=== PATIENT | female | born 1945 | race Caucasian/White ===

== ENCOUNTER 2016-09-29 12:45 | Inpatient (IN) | payer MEDICARE, OTHER ==
[~2016-09-29] VITALS: Ht 157.5 cm; Wt 61.0 kg
[~2016-09-29 12:45] MED LIST: AMLO10TA2 PO; BENZ2TAB5 PO; CARB1TAB2 PO; CIPR500T94 PO; CYCL-331 PO; DULO60CA6 PO; FOLI1TAB16 PO; HYDR25TA9 PO; IBUP200T43 PO; LAMO100T PO; LAMO100T37 PO; LEVO40CA PO; LEVO50TA5 PO; LITH300C PO; LORA0.5T PO; LOSA1TAB17 PO; LOSA25TA4 PO; MELO7.5T5 PO; OLAN5TAB9 PO; ONDA4TAB10 PO; POLY17PO5 PO; ROPI0.5T PO; SIMV40TA3 PO; TRIH2TAB3 PO
--- NOTE | 2016-09-29 13:02 | ED.ADGEN ---
Past History Past Medical History: Anxiety, COPD, Depression, Fibromyalgia, GERD, High Cholesterol, Hypertension, Other Past Surgical History: Appendectomy, Cholecystectomy, Hysterectomy, Other Smoking: Non-smoker Alcohol Use: None Drug Use: None Adult General Chief Complaint Chief Complaint weakness, nausea HPI HPI Patient is a 71 year old F who presents with nausea, weakness, multiple body complaints and stopping some medications at home on own. Pt states she hasn't had a BM in 2 months Pt c/o Nausea and vomiting and unable to keep significant food and water down for weeks. Pt states slight burning with urination. Pt states since she was released from Hospital not doing well. Pt lives alone and has helper come in. Per son pt had hospitalization in April and has had some struggles with his mothers care at her home since release and pt had Dementia. Pt c/o abdominal pain , decreased urination, generalized weakness, no Chest pain , no dyspnea Review of Systems Review of Systems Constitutional: Denies fever but states she has had chills Eyes: Denies change in visual acuity, redness, or eye pain HENT: Denies nasal congestion or sore throat Respiratory: Denies cough or shortness of breath Cardiovascular: No additional information not addressed in HPI GI: abdominal pain, N/V, constipation, no melena : Denies or hematuria [] Musculoskeletal: Denies back pain or joint pain [] Integument: Denies rash or skin lesions Neurologic: Denies headache, focal weakness or sensory changes ] Current Medications Current Medications Current Medications Medications (Trade) Dose Ordered Sig/Antionette Start Time Stop Time Status Last Admin Dose Admin Ceftriaxone Sodium 1 gm/ Sodium Chloride 50 ml @ 100 mls/hr 1X ONCE 09/29/16 16:45 09/29/16 17:14 DC 09/29/16 16:45 100 MLS/HR Ceftriaxone Sodium (Rocephin) 1 gm STK-MED ONCE 09/29/16 16:54 09/29/16 16:55 DC Iohexol (Omnipaque 300 Mg/ml) 75 ml 1X ONCE 09/29/16 14:30 09/29/16 14:31 DC 09/29/16 14:52 75 ML Ondansetron HCl (Zofran) 4 mg 1X ONCE 09/29/16 14:15 09/29/16 14:16 DC 09/29/16 14:07 4 MG Potassium Chloride (Klor-Con) 40 meq 1X ONCE 09/29/16 16:45 09/29/16 16:46 DC 09/29/16 16:45 40 MEQ Sodium Chloride 50 ml @ As Directed STK-MED ONCE 09/29/16 16:54 09/29/16 16:55 DC Allergies Allergies Allergies Coded Allergies Type Severity Reaction Last Updated Verified gluten Allergy Intermediate 05/05/16 Yes lactase Allergy Intermediate 05/05/16 Yes aspirin Allergy Mild rash 04/05/14 Yes latex Allergy Mild rash 04/05/14 Yes metoclopramide Allergy Mild rash 04/05/14 Yes oxycodone Allergy Mild hives 04/05/14 Yes sulfamethoxazole Allergy Mild hives 04/05/14 Yes trimethoprim Allergy Mild hives 04/05/14 Yes Physical Exam Physical Exam Constitutional: Well developed, well nourished, no acute distress, non-toxic appearance. [] HENT: Normocephalic, atraumatic, bilateral external ears normal, oropharynx moist, no oral exudates, nose normal. [] Eyes: PERRLA, EOMI, conjunctiva normal, no discharge. [] Neck: Normal range of motion, no tenderness, supple, no stridor. [] Cardiovascular:Heart rate regular rhythm, no murmur [] Lungs & Thorax: Bilateral breath sounds clear to auscultation [] Abdomen: Bowel sounds normal, soft, no tenderness, no masses, no pulsatile masses. [] Skin: Warm, dry, no erythema, no rash. [] Back: No tenderness, no CVA tenderness. [] Extremities: No tenderness, no cyanosis, no clubbing, ROM intact, no edema. [] Neurologic: Alert and oriented X 3, normal motor function, normal sensory function, no focal deficits noted. [] Psychologic: Affect normal, judgement normal, mood normal. [] Current Patient Data Vital Signs Vital Signs Date Time Temp Pulse Resp B/P (MAP) Pulse Ox O2 Delivery O2 Flow Rate FiO2 09/29/16 16:16 77 21 120/80 (93) 96 09/29/16 12:45 97.8 Room Air Lab Results Laboratory Tests Test 09/29/16 13:54 09/29/16 14:00 Urine Collection Type Unknown Urine Color Yellow Urine Clarity Hazy Urine pH 6.5 Urine Specific Robinson 1.015 Urine Protein 30 mg/dl (NEG-TRACE) Urine Glucose (UA) Neg mg/dL (NEG) Urine Ketones (Stick) 15 mg/dL (NEG) Urine Blood Neg (NEG) Urine Nitrite Neg (NEG) Urine Bilirubin Neg (NEG) Urine Urobilinogen Dipstick 1 mg/dL (0.2 mg/dL) Urine Leukocyte Esterase Mod (NEG) Urine RBC 1-2 /HPF (0-2) Urine WBC 11-20 /HPF (0-4) Urine Squamous Epithelial Cells Few /LPF Urine Bacteria 0 /HPF (0-FEW) Urine Mucus Mod /LPF White Blood Count 12.4 x10^3/uL (4.0-11.0) H Red Blood Count 5.31 x10^6/uL (3.50-5.40) Hemoglobin 15.6 g/dL (12.0-15.5) H Hematocrit 45.4 % (36.0-47.0) Mean Corpuscular Volume 86 fL (79-100) Mean Corpuscular Hemoglobin 29 pg (25-35) Mean Corpuscular Hemoglobin Concent 34 g/dL (31-37) Red Cell Distribution Width 14.7 % (11.5-14.5) H Platelet Count 440 x10^3/uL (140-400) H Neutrophils (%) (Auto) 78 % (31-73) H Lymphocytes (%) (Auto) 15 % (24-48) L Monocytes (%) (Auto) 6 % (0-9) Eosinophils (%) (Auto) 1 % (0-3) Basophils (%) (Auto) 1 % (0-3) Neutrophils # (Auto) 9.6 x10^3uL (1.8-7.7) H Lymphocytes # (Auto) 1.9 x10^3/uL (1.0-4.8) Monocytes # (Auto) 0.8 x10^3/uL (0.0-1.1) Eosinophils # (Auto) 0.1 x10^3/uL (0.0-0.7) Basophils # (Auto) 0.1 x10^3/uL (0.0-0.2) Sodium Level 138 mmol/L (136-145) Potassium Level 3.0 mmol/L (3.5-5.1) L Chloride Level 100 mmol/L (98-107) Carbon Dioxide Level 24 mmol/L (21-32) Anion Gap 14 (6-14) Blood Urea Nitrogen 16 mg/dL (7-20) Creatinine 1.2 mg/dL (0.6-1.0) H Estimated GFR (Cockcroft-Gault) 44.4 BUN/Creatinine Ratio 13 (6-20) Glucose Level 127 mg/dL (70-99) H Calcium Level 9.5 mg/dL (8.5-10.1) Total Bilirubin 0.9 mg/dL (0.2-1.0) Aspartate Amino Transferase (AST) 16 U/L (15-37) Alanine Aminotransferase (ALT) 13 U/L (14-59) L Alkaline Phosphatase 89 U/L (46-116) Creatine Kinase 26 U/L (26-192) Creatine Kinase MB (Mass) < 0.5 ng/mL (0.0-3.6) Creatine Kinase MB Relative Index 1.9 % (0-4) Troponin I Quantitative < 0.017 ng/mL (0-0.055) WX-Moo-F-Type Natriuretic Peptide 33 pg/mL (0-124) Total Protein 8.5 g/dL (6.4-8.2) H Albumin 4.5 g/dL (3.4-5.0) Albumin/Globulin Ratio 1.1 (1.0-1.7) Lipase 158 U/L (73-393) EKG EKG ekg 1404 Sinus rhythm with non specific ST T wave abnormality, no STEMI, no acute ischemic changes[] Radiology/Procedures Radiology/Procedures PATIENT: ROSALES TREADWELL ACCOUNT: [id number] : 1945 LOCATION: ER AGE: 71 SEX: F EXAM STATUS: REG ER ORD. PHYSICIAN: DANO RUTH MD REASON: abdominal pain PROCEDURE: CT ABD PELV W/ IV CONTRST ONLY Indication: Abdominal pain and weight loss. Axial imaging through the abdomen and pelvis was performed after the administration of intravenous contrast. No prior studies are available for comparison. The lung bases are clear. The liver is unremarkable. There is generalized low density consistent with fatty infiltration. The gallbladder is surgically absent. The intrahepatic bile ducts are slightly prominent, likely owing to postcholecystectomy. The pancreas and spleen are unremarkable. No adrenal mass is identified. The kidneys are unremarkable. Aorta is nonaneurysmal. No central retroperitoneal or mesenteric lymphadenopathy is seen. The small and large bowel loops are normal caliber. There is no ascites. There is sigmoid diverticulosis but no evidence of acute diverticulitis. The bladder is unremarkable. No pelvic lymphadenopathy is seen. Impression: Fatty infiltration of the liver and uncomplicated diverticulosis. The study is otherwise unremarkable. No acute feature is detected. DICTATED AND SIGNED BY: JOSE DALTON MD DATE: 09/29/16 1502 CC: DANO RUTH MD; PCP,N ATIENT: TREADWELLCARLOS ACCOUNT: [id number] : 1945 LOCATION: ER AGE: 71 SEX: F EXAM STATUS: REG ER ORD. PHYSICIAN: DANO RUTH MD REASON: dyspnea PROCEDURE: CHEST AP ONLY Indication: Dyspnea and abdominal pain. Time of exam 1409 hours. Correlation is made with prior chest from 05/02/2016. FINDINGS: The heart size is normal. The lungs are clear. No pleural effusion or pneumothorax is identified. The pulmonary vascularity is normal. IMPRESSION: No acute abnormality detected. DICTATED AND SIGNED BY: JOSE DALTON MD DATE: 09/29/16 1418 CC: DANO RUTH MD; PCP,NO ~ [] Course & Med Decision Making Course & Med Decision Making Pertinent Labs and Imaging studies reviewed. (See chart for details) []Pt with UTI , dehydration, generalized weakness and questionable medication compliance at home Pt low K+ given oral in ER given IV rocephin in ER Discussed with son and with current issues with pt on own at home and stopping meds on own may need placement will admit for treatment and social consult Final Impression Final Impression Weakness UTI Hypokalemia [] Problems: Dragon Disclaimer Dragon Disclaimer This electronic medical record was generated, in whole or in part, using a voice recognition dictation system. DANO RUTH MD September 29, 2016 13:02
[2016-09-29] MEDS ORDERED: ONDANSETRON PF 4 MG/2 ML VIAL. IV ONE (14:15)
[2016-09-29 14:19] LABS: BACTERIA,URINE 0 /HPF (0-FEW); BILIRUBIN,URINE NEG (NEG); CLARITY,URINE HAZY; COLOR,URINE YELLOW; GLUCOSE,URINE NEG (NEG); NITRITE,URINE NEG (NEG); UROBILINOGEN,URINE 1 mg/dL (0.2 mg/dL)
[2016-09-29 14:20] LABS: SQUAMOUS EPITHELIAL CELL,UR FEW /LPF
--- NOTE | 2016-09-29 14:21 | RAD ---
Indication: Dyspnea and abdominal pain. Time of exam 1409 hours. Correlation is made with prior chest from 05/02/2016. FINDINGS: The heart size is normal. The lungs are clear. No pleural effusion or pneumothorax is identified. The pulmonary vascularity is normal. IMPRESSION: No acute abnormality detected.
[2016-09-29 14:24] LABS: BASO # 0.1 x10^3/uL (0.0-0.2); BASO % 1 % (0-3); EOS # 0.1 x10^3/uL (0.0-0.7); EOS % 1 % (0-3); HEMATOCRIT 45.4 % (36.0-47.0); HEMOGLOBIN 15.6 g/dL (12.0-15.5); LYMPH # 1.9 x10^3/uL (1.0-4.8); LYMPH % 15 % (24-48); MEAN CORPUSCULAR HEMOGLOBIN 29 pg (25-35); MEAN CORPUSCULAR HGB CONC 34 g/dL (31-37); MEAN CORPUSCULAR VOLUME 86 fL (79-100); MONO # 0.8 x10^3/uL (0.0-1.1); MONO % 6 % (0-9); NEUT # 9.6 x10^3uL (1.8-7.7); NEUT % 78 % (31-73); PLATELET COUNT 440 x10^3/uL (140-400); RED BLOOD COUNT 5.31 x10^6/uL (3.50-5.40); RED CELL DISTRIBUTION WIDTH 14.7 % (11.5-14.5); WHITE BLOOD COUNT 12.4 x10^3/uL (4.0-11.0)
--- NOTE | 2016-09-29 14:25 | EKG ---
[address] [address] Test Date: 2016-09-29 Test Time: 14:04:55 Pat Name: ROSALES TREADWELL Department: Room: Gender: F [employer]er: BRANDO : 1945 Requested By: DANO RUTH Order Number: [id number] Reading MD: Eric Rodriguez Measurements Intervals [place] Rate: 80 P: 55 NC: 162 QRS: 46 QRSD: 88 T: 12 QT: 372 QTc: 433 Interpretive Statements SINUS RHYTHM NON-SPECIFIC ST/T CHANGES Electronically Signed On 10-06-2016 8:58:13 CDT by Eric Rodriguez
[2016-09-29] MEDS ORDERED: IOHEXOL 300 MG/ML 75 ML VIAL. IV ONE (14:30)
[2016-09-29 14:31] LABS: ALBUMIN 4.5 g/dL (3.4-5.0); ALBUMIN/GLOBULIN RATIO 1.1 (1.0-1.7); CALCIUM 9.5 mg/dL (8.5-10.1); CREATININE 1.2 mg/dL (0.6-1.0); GFR 44.4; TOTAL BILIRUBIN 0.9 mg/dL (0.2-1.0); TOTAL PROTEIN 8.5 g/dL (6.4-8.2)
[2016-09-29 14:40] LABS: CREATINE KINASE 26 U/L (26-192)
--- NOTE | 2016-09-29 15:07 | RAD ---
Indication: Abdominal pain and weight loss. Axial imaging through the abdomen and pelvis was performed after the administration of intravenous contrast. No prior studies are available for comparison. The lung bases are clear. The liver is unremarkable. There is generalized low density consistent with fatty infiltration. The gallbladder is surgically absent. The intrahepatic bile ducts are slightly prominent, likely owing to postcholecystectomy. The pancreas and spleen are unremarkable. No adrenal mass is identified. The kidneys are unremarkable. Aorta is nonaneurysmal. No central retroperitoneal or mesenteric lymphadenopathy is seen. The small and large bowel loops are normal caliber. There is no ascites. There is sigmoid diverticulosis but no evidence of acute diverticulitis. The bladder is unremarkable. No pelvic lymphadenopathy is seen. Impression: Fatty infiltration of the liver and uncomplicated diverticulosis. The study is otherwise unremarkable. No acute feature is detected.
[2016-09-29] MEDS ORDERED: POTASSIUM CHLORIDE 20 MEQ TABLET.ER. PO ONE (16:45)
[2016-09-29] MEDS ORDERED: IV NORMAL SALINE 50ML 50 ML ONE (16:54)
[2016-09-29] MEDS ORDERED: cefTRIAXone SODIUM 1 GM VIAL IV ONE (16:54)
[2016-09-29] MEDS ORDERED: DONE10TA7 PO (19:17)
[2016-09-29] MEDS: ONDANSETRON PF 4 MG/2 ML VIAL. IV PRN (19:18)
[2016-09-29] MEDS ORDERED: LAMO100T PO (19:18)
[2016-09-29] MEDS: POTASSIUM CL 20MEQ D5-0.45NACL 1,000 ML IV SCH (19:18)
[2016-09-29] MEDS ORDERED: SIMV10TA3 PO (19:19)
[2016-09-29] MEDS ORDERED: ROPI0.5T PO (19:21)
[2016-09-29] MEDS ORDERED: ROPI1TAB PO (19:22)
[2016-09-29] MEDS ORDERED: [UNRECOGNIZED DRUG - OTHER] PO (19:24)
[2016-09-29] MEDS ORDERED: BISA5TAB4 PO (19:24)
[2016-09-29] MEDS ORDERED: MULT-658 PO (19:24)
[2016-09-29 19:41] VITALS: BP 124/82
[2016-09-29 23:46] VITALS: BP 116/76
[2016-09-30] MEDS: POTASSIUM CL 20MEQ D5-0.45NACL 1,000 ML IV SCH ×2 (03:44→15:41)
[2016-09-30 05:40] VITALS: BP 110/72
[2016-09-30 06:17] LABS: BASO # 0.1 x10^3/uL (0.0-0.2); BASO % 1 % (0-3); EOS # 0.1 x10^3/uL (0.0-0.7); EOS % 1 % (0-3); HEMATOCRIT 40.8 % (36.0-47.0); HEMOGLOBIN 13.9 g/dL (12.0-15.5); LYMPH # 2.6 x10^3/uL (1.0-4.8); LYMPH % 31 % (24-48); MEAN CORPUSCULAR HEMOGLOBIN 29 pg (25-35); MEAN CORPUSCULAR HGB CONC 34 g/dL (31-37); MEAN CORPUSCULAR VOLUME 87 fL (79-100); MONO # 0.7 x10^3/uL (0.0-1.1); MONO % 8 % (0-9); NEUT # 5.1 x10^3uL (1.8-7.7); NEUT % 59 % (31-73); PLATELET COUNT 322 x10^3/uL (140-400); RED BLOOD COUNT 4.71 x10^6/uL (3.50-5.40); RED CELL DISTRIBUTION WIDTH 14.5 % (11.5-14.5); WHITE BLOOD COUNT 8.6 x10^3/uL (4.0-11.0)
[2016-09-30 06:47] LABS: ALBUMIN 3.5 g/dL (3.4-5.0); CALCIUM 8.6 mg/dL (8.5-10.1); GFR 54.8; POTASSIUM 3.8 mmol/L (3.5-5.1); TOTAL BILIRUBIN 0.7 mg/dL (0.2-1.0)
[2016-09-30 10:11] VITALS: BP 126/78
--- NOTE | 2016-09-30 12:17 | HP ---
ADMIT DATE: 09/29/2016 HISTORY OF PRESENT ILLNESS: The patient is a 71-year-old female patient who came to the Emergency Room complaining of recurrent bouts of nausea, vomiting. She claimed that she has not had any bowel movement for almost a month now, has been unable to keep anything by mouth and yesterday, she became very dizzy and lightheaded, very weak and decided to come to the Emergency Room where she was evaluated and admitted with dehydration and hypokalemia. She has had a CT scan of the abdomen and pelvis, which showed no acute abnormality detected and was started on IV fluid as well as antiemetics. PAST MEDICAL HISTORY: Significant for hypertension, hyperlipidemia, bronchial asthma, celiac disease, fibromyalgia, Parkinson's disease. PAST SURGICAL HISTORY: Significant for appendectomy, cholecystectomy, partial hysterectomy, L4-L5 laminectomy x 3. She had right shoulder arthroscopic surgery and she had a bowel obstruction and underwent exploratory laparotomy x 2, one of them was for adhesions. She also has had esophagogastroduodenoscopy as well as colonoscopy. ALLERGIES: She is allergic to PENICILLIN, LATEX, METOCLOPRAMIDE, OXYCODONE, SULFAMETHOXAZOLE AND TRIMETHOPRIM. MEDICATIONS: She is currently on following medications: Amlodipine 10 mg once a day, probiotic 1 tablet once a day, bisacodyl 5 mg tablet every other day, carbidopa/levodopa for Sinemet 25/100 mg four times a day, Aricept 10 mg once a day, duloxetine 60 mg once a day, folic acid 1 mg once a day, lamotrigine 50 mg at bedtime, multivitamin with mineral 1 tablet once a day, ReQuip 0.5 mg 3 times a day, ReQuip 1 mg 3 times a day, simvastatin 10 mg at bedtime. FAMILY HISTORY: She has 2 brothers, one older and healthy and one younger has spina bifida. Her father at age of 97 due to intracranial hemorrhage. Mother at age of 90 because of cardiac arrest. SOCIAL HISTORY: She is and . She has 1 son and 1 daughter. She has never smoked, does not drink alcohol, works in accounting. REVIEW OF SYSTEMS: The patient denied any blurring of vision, cataract, glaucoma or macular degeneration. Denied any earache, tinnitus or sensorineural deafness. Denied any nosebleeds, stuffy nose or postnasal drip. Denied any sore throat, sore tongue, toothache, hoarseness of voice or difficulty swallowing. Did complain of nausea, vomiting, has had constipation for almost a month according to her. Denied any hematemesis, melena or hematochezia. Denied any dysuria, frequency or hematuria. Denied any chest pain, shortness of breath, orthopnea or paroxysmal nocturnal dyspnea. Did complain of dizziness and lightheadedness. PHYSICAL EXAMINATION: GENERAL: On arrival, she looked somewhat pale, but no jaundice or cyanosis. No lymphadenopathy, no thyromegaly, no jugular venous distention, no limb edema. VITAL SIGNS: Her heart rate was 95, blood pressure was 107/65, temperature was 97.8, respiratory rate was 18 and oxygen saturation was 98% on room air. HEENT: Normocephalic, atraumatic. NECK: Supple. HEART: Showed normal first and second heart sounds with no gallop, rub or murmur. CHEST: Clear to auscultation. No crepitation or rhonchi. ABDOMEN: Distended, soft, nontender. NEUROLOGIC: She is awake, alert, responding appropriately. Cranial nerves intact. EXTREMITIES: She moves her extremities without difficulty. LABORATORY DATA: On arrival showed a white cell count of 12,400, hemoglobin 15.6, hematocrit 45, MCV 86 and platelet count of 440,000 with a manual differential that showed 78% polymorphs, 15% lymphocytes. Her chemistry showed a serum sodium of 138, potassium 3, chloride 100, bicarbonate 24, anion gap of 14, BUN 16, creatinine 1.2, estimated GFR was 44 mL per minute. Her glucose was 127, calcium was 9.5. Total bilirubin, AST, ALT, alkaline phosphatase were normal. Her total protein was 8.5, albumin was 4.5. Serum lipase 158. ASSESSMENT AND PLAN: The patient was admitted with what seemed to be intractable nausea and vomiting. She was clearly dehydrated. Her BUN was 16, creatinine 1.2. Her H and H are high at 15.6 and 45. Her urinalysis showed moderate amount of leukocyte esterase with 11-20 wbc's and moderate very few bacteria. She was started on IV fluid, IV antibiotic and ceftriaxone and antiemetic. I will decide on further management according to her response. VIJAYA TORREZ MD DR: MAGY/kimber JOB#: [id number] / [id number]
[2016-09-30] MEDS: lamoTRIgine 25 MG TABLET. PO SCH ×2 (12:37→20:59)
[2016-09-30] MEDS: rOPINIRole 1 MG TABLET. PO SCH ×2 (12:37→20:59)
[2016-09-30] MEDS: amLODIPine BESYLATE 10 MG TABLET PO SCH (12:38)
[2016-09-30] MEDS: CARBIDOPA/LEVODOPA 25/100MG TABLET PO SCH ×3 (12:38→20:59)
[2016-09-30] MEDS: rOPINIRole 0.5 MG TABLET. PO SCH ×2 (12:38→20:59)
[2016-09-30] MEDS: DONEPEZIL HCL 10 MG TABLET PO SCH (12:38)
[2016-09-30] MEDS: DULoxetine HCL 60 MG CAPSULE.DR PO SCH ×3 (12:38→20:59)
[2016-09-30] MEDS: FOLIC ACID 1 MG TABLET PO SCH (12:38)
[2016-09-30] MEDS: BISACODYL TAB 5 MG TABLET.DR. PO SCH (12:38)
[2016-09-30] MEDS: SIMVASTATIN 10 MG TABLET PO SCH (12:38)
[2016-09-30 15:24] VITALS: BP 119/77
[2016-09-30] MEDS: ONDANSETRON PF 4 MG/2 ML VIAL. IV PRN (15:40)
[2016-09-30 18:26] VITALS: BP 134/83
--- NOTE | 2016-09-30 22:18 | PN ---
DATE: 09/30/2016 SUBJECTIVE: The patient is resting, slightly propped up in bed, in no apparent distress, awake, alert. On questioning her, denied any further episodes of nausea or vomiting. She has tolerated her clear liquid diet. She denied any abdominal pain. PHYSICAL EXAMINATION: GENERAL: When I examined her this morning, she looked well and was clearly in no apparent respiratory distress, pale, but no jaundice, cyanosis or thyromegaly. No jugular venous distention. No limb edema. VITAL SIGNS: Her heart rate was 65, blood pressure 126/78, temperature was 97.7, respiratory rate 20 and oxygen saturation was 97%. HEAD, EYES, EARS, NOSE AND THROAT: Normocephalic, atraumatic. NECK: Supple. HEART: Showed normal first and second heart sounds with no gallop, rub or murmur. CHEST: Clear to auscultation. No crepitation or rhonchi. ABDOMEN: Soft, nontender. No guarding or rigidity. No organomegaly. All hernial orifices intact. Bowel sounds normal. NEUROLOGIC: She is awake, alert but definitely demented. All her cranial nerves are intact. She moves extremities without difficulty. Her intake over the last 24 hours was 1200, output was 350. LABORATORY DATA: Her lab work this morning showed her serum sodium 141, potassium 3.8, chloride 106, bicarbonate 27, anion gap of 8, BUN 13, creatinine 1, estimated GFR was 55 mL per minute. Her glucose 113, calcium was 8.6. Total bilirubin, AST, ALT, alkaline phosphatase were normal. Her total protein 7, albumin was 3.5. Her white cell count was 8600, hemoglobin 13.9, hematocrit 40.8, MCV 87 and platelet count of 322,000. ASSESSMENT: 1. Intractable nausea and vomiting. 2. Dehydration. 3. Acute kidney injury. 4. Hypokalemia which has resolved. Other issues include hyperlipidemia, celiac disease, fibromyalgia and Parkinson's disease. VIJAYA TORREZ MD DR: MAGY/kimber JOB#: [id number] / [id number]
[2016-09-30 23:30] VITALS: BP 137/78
[2016-10-01] MEDS: POTASSIUM CL 20MEQ D5-0.45NACL 1,000 ML IV SCH ×3 (01:17→20:25)
[2016-10-01 04:59] VITALS: BP 120/76
[2016-10-01 06:30] LABS: BASO # 0.1 x10^3/uL (0.0-0.2); BASO % 1 % (0-3); EOS # 0.1 x10^3/uL (0.0-0.7); EOS % 1 % (0-3); HEMATOCRIT 40.6 % (36.0-47.0); HEMOGLOBIN 14.2 g/dL (12.0-15.5); LYMPH # 2.4 x10^3/uL (1.0-4.8); LYMPH % 26 % (24-48); MEAN CORPUSCULAR HEMOGLOBIN 30 pg (25-35); MEAN CORPUSCULAR HGB CONC 35 g/dL (31-37); MEAN CORPUSCULAR VOLUME 85 fL (79-100); MONO # 0.6 x10^3/uL (0.0-1.1); MONO % 7 % (0-9); NEUT % 65 % (31-73); PLATELET COUNT 337 x10^3/uL (140-400); RED BLOOD COUNT 4.76 x10^6/uL (3.50-5.40); WHITE BLOOD COUNT 9.2 x10^3/uL (4.0-11.0)
[2016-10-01 06:52] LABS: ALBUMIN 3.8 g/dL (3.4-5.0); CALCIUM 8.9 mg/dL (8.5-10.1); GFR 54.8; POTASSIUM 3.7 mmol/L (3.5-5.1); TOTAL BILIRUBIN 0.5 mg/dL (0.2-1.0); TOTAL PROTEIN 7.5 g/dL (6.4-8.2)
[2016-10-01] MEDS: rOPINIRole 0.5 MG TABLET. PO SCH ×3 (09:00→20:25)
[2016-10-01] MEDS: DONEPEZIL HCL 10 MG TABLET PO SCH (09:08)
[2016-10-01] MEDS: MULTIVITAMIN with MINERAL TABLET. PO SCH (09:08)
[2016-10-01] MEDS: amLODIPine BESYLATE 10 MG TABLET PO SCH (09:09)
[2016-10-01] MEDS: CARBIDOPA/LEVODOPA 25/100MG TABLET PO SCH ×4 (09:09→20:25)
[2016-10-01] MEDS: LACTOBACILLUS ACIDOPH & BULGAR 1 TABLET. PO SCH (09:09)
[2016-10-01] MEDS: rOPINIRole 1 MG TABLET. PO SCH ×3 (09:09→20:25)
[2016-10-01] MEDS: FOLIC ACID 1 MG TABLET PO SCH (09:09)
[2016-10-01] MEDS: SIMVASTATIN 10 MG TABLET PO SCH (09:09)
[2016-10-01] MEDS: ONDANSETRON PF 4 MG/2 ML VIAL. IV PRN ×2 (09:11→16:57)
[2016-10-01 11:28] VITALS: BP 113/73
[2016-10-01 16:12] VITALS: BP 127/77
[2016-10-01 19:10] VITALS: BP 132/86
[2016-10-01] MEDS: lamoTRIgine 25 MG TABLET. PO SCH (20:25)
[2016-10-01] MEDS: DULoxetine HCL 60 MG CAPSULE.DR PO SCH (20:25)
[2016-10-01 23:15] VITALS: BP 111/73
[2016-10-02] MEDS: POTASSIUM CL 20MEQ D5-0.45NACL 1,000 ML IV SCH (05:26)
[2016-10-02 05:32] VITALS: BP 129/78
[2016-10-02 06:20] LABS: CALCIUM 8.9 mg/dL (8.5-10.1); GFR 54.8; MAGNESIUM 1.8 mg/dL (1.8-2.4); POTASSIUM 3.8 mmol/L (3.5-5.1)
[2016-10-02] MEDS: FOLIC ACID 1 MG TABLET PO SCH (08:34)
[2016-10-02] MEDS: CARBIDOPA/LEVODOPA 25/100MG TABLET PO SCH ×4 (08:34→21:11)
[2016-10-02] MEDS: rOPINIRole 0.5 MG TABLET. PO SCH ×3 (08:34→21:11)
[2016-10-02] MEDS: rOPINIRole 1 MG TABLET. PO SCH ×3 (08:34→21:11)
[2016-10-02] MEDS: MULTIVITAMIN with MINERAL TABLET. PO SCH (08:34)
[2016-10-02] MEDS: LACTOBACILLUS ACIDOPH & BULGAR 1 TABLET. PO SCH (08:34)
[2016-10-02] MEDS: DONEPEZIL HCL 10 MG TABLET PO SCH (08:34)
[2016-10-02] MEDS: amLODIPine BESYLATE 10 MG TABLET PO SCH (08:35)
[2016-10-02] MEDS: BISACODYL TAB 5 MG TABLET.DR. PO SCH (08:35)
[2016-10-02] MEDS: ONDANSETRON PF 4 MG/2 ML VIAL. IV PRN ×3 (08:35→21:12)
[2016-10-02] MEDS: SIMVASTATIN 10 MG TABLET PO SCH (08:35)
--- NOTE | 2016-10-02 09:40 | PN ---
DATE: 10/01/2016 SUBJECTIVE: The patient is sitting comfortably in her recliner in no apparent distress. She continues to be tolerating a liquid diet without any problems. She has had no further episodes of nausea, vomiting. She is well hydrated. Her electrolytes, particularly sodium and potassium are well within normal range. PHYSICAL EXAMINATION: GENERAL: When I examined her, she looked well and was clearly in no apparent respiratory distress, pale, but no jaundice, cyanosis or thyromegaly. No jugular venous distention. No limb edema. VITAL SIGNS: Her heart rate was 71, blood pressure 113/73, temperature was 97.9, respiratory rate 20 and oxygen saturation was 97%. HEAD, EYES, EARS, NOSE AND THROAT: Normocephalic, atraumatic. NECK: Supple. HEART: Showed normal first and second heart sounds with no gallop, rub or murmur. CHEST: Clear to auscultation. No crepitation or rhonchi. ABDOMEN: Distended, soft, nontender. No guarding or rigidity. No organomegaly. All hernial orifices intact. Bowel sounds normal. NEUROLOGIC: She was awake, alert, responding appropriately. Cranial nerves are intact. She moves extremities without difficulty. She ambulates without assistance or assistive devices. Her intake over the last 24 hours was 1200, output 350. LABORATORY DATA: As of this morning, her serum sodium was 143, potassium 3.7, chloride 106, bicarbonate 27, anion gap of 10, BUN 6, creatinine 1, estimated GFR was 55 mL per minute. Her glucose was 110. Calcium was 8.9. Total bilirubin, AST, ALT, alkaline phosphatase were normal. Her total protein was 7.5, albumin 3.8. White cell count was 9200, hemoglobin 14, hematocrit 40, MCV 85 and platelet count of 337,000. ASSESSMENT: 1. Intractable nausea and vomiting, resolved. 2. Dehydration, resolved. 3. Acute kidney injury, resolved. 4. Hypokalemia has resolved. Her serum potassium has risen from 3 to 3.7. 5. Hyperlipidemia. 6. Celiac disease. 7. Fibromyalgia. 8. Parkinson disease. PLAN: To advance her diet as tolerated. SHE HAS AN ALLERGY TO GLUTEN AND LACTOSE. VIJAYA TORREZ MD DR: MAGY/kimber JOB#: [id number] / [id number]
[2016-10-02 14:59] VITALS: BP 121/75
--- NOTE | 2016-10-02 19:10 | PN ---
DATE: 10/02/2016 SUBJECTIVE: The patient is resting slightly propped up in bed, in no apparent respiratory distress. She is awake, alert, responding appropriately. She apparently is eating and drinking. Her urine culture showed only normal segun. PHYSICAL EXAMINATION: GENERAL: When I examined her, she looked pale, but no jaundice, cyanosis, or thyromegaly. No jugular venous distention. No limb edema. VITAL SIGNS: Her heart rate was 72, blood pressure 129/78, temperature was 98.3, respiratory rate was 20 and oxygen saturation was 98% on room air. HEAD, EYES, EARS, NOSE AND THROAT: Showed normocephalic, atraumatic. NECK: Supple. HEART: Showed normal first and second heart sounds with no gallop, rub or murmur. CHEST: Clear to auscultation. No crepitation or rhonchi. ABDOMEN: Distended, soft, nontender. No guarding or rigidity. No organomegaly. All hernial orifices intact. Bowel sounds normal. NEUROLOGIC: She is demented, but without any obvious lateralizing signs. All cranial nerves are intact. She moves extremities without difficulty. Her intake over the last 24 hours was 4400, output was 4350. LABORATORY DATA: Her lab work as of this morning showed a serum sodium 143, potassium 3.8, chloride 104, bicarbonate 29, anion gap of 10, BUN 5, creatinine 1, estimated GFR was 55 mL per minute. Her glucose was 109, calcium was 8.9 and magnesium was 1.8. Her white cell count was 9200, hemoglobin 14, hematocrit 40, MCV 85 and platelet count of 337,000. ASSESSMENT: 1. Intractable nausea and vomiting, resolved. 2. Dehydration, resolved. 3. Acute kidney injury, resolved. 4. Hypokalemia, has improved. Her most recent serum potassium has risen to 3.8. 5. Hyperlipidemia. 6. Celiac disease. 7. Fibromyalgia. 8. Parkinson's disease. PLAN: To discontinue the IV antibiotic as her urine culture showed only 25 to 50,000 colony forming units ____ segun. I will also discontinue the IV fluid and start physical and occupational therapy. VIJAYA TORREZ MD DR: MAGY/kimber JOB#: [id number] / [id number]
[2016-10-02 19:26] VITALS: BP 128/78
[2016-10-02] MEDS: lamoTRIgine 25 MG TABLET. PO SCH (21:11)
[2016-10-02] MEDS: DULoxetine HCL 60 MG CAPSULE.DR PO SCH (21:11)
[2016-10-03 05:05] VITALS: BP 122/76
[2016-10-03] MEDS: FOLIC ACID 1 MG TABLET PO SCH (08:28)
[2016-10-03] MEDS: amLODIPine BESYLATE 10 MG TABLET PO SCH (08:28)
[2016-10-03] MEDS: SIMVASTATIN 10 MG TABLET PO SCH (08:28)
[2016-10-03] MEDS: LACTOBACILLUS ACIDOPH & BULGAR 1 TABLET. PO SCH (08:28)
[2016-10-03] MEDS: MULTIVITAMIN with MINERAL TABLET. PO SCH (08:28)
[2016-10-03] MEDS: rOPINIRole 0.5 MG TABLET. PO SCH (08:28)
[2016-10-03] MEDS: rOPINIRole 1 MG TABLET. PO SCH (08:28)
[2016-10-03] MEDS: DONEPEZIL HCL 10 MG TABLET PO SCH (08:29)
[2016-10-03] MEDS: CARBIDOPA/LEVODOPA 25/100MG TABLET PO SCH (08:29)
[2016-10-03 09:40] VITALS: BP 125/70
== END 2016-10-03 10:15 | DRG 392 ==
LOC: ER 12:45 → 1 SOUTH 17:05 → OBSVTOIN 09-30 13:08
PROVIDERS: ADMIT Internal Medicine; ATTEND Internal Medicine
DX: R11.2 Nausea with vomiting, unspecified (principal); N17.9 Acute kidney failure, unspecified; E87.6 Hypokalemia; E78.00 Pure hypercholesterolemia, unspecified; E78.5 Hyperlipidemia, unspecified; F03.90 Unspecified dementia, unspecified severity, without behavioral disturbance, psychotic disturbance, mood disturbance, and anxiety; G20 Parkinson's disease; I10 Essential (primary) hypertension; K21.9 Gastro-esophageal reflux disease without esophagitis; K57.30 Diverticulosis of large intestine without perforation or abscess without bleeding; J45.909 Unspecified asthma, uncomplicated; J44.9 Chronic obstructive pulmonary disease, unspecified; E86.0 Dehydration; K76.0 Fatty (change of) liver, not elsewhere classified; K90.0 Celiac disease; M79.7 Fibromyalgia; F32.9 Major depressive disorder, single episode, unspecified; F41.9 Anxiety disorder, unspecified; R63.4 Abnormal weight loss; Z82.41 Family history of sudden cardiac death; Z90.49 Acquired absence of other specified parts of digestive tract; Z68.24 Body mass index [BMI] 24.0-24.9, adult; Z88.5 Allergy status to narcotic agent; Z88.2 Allergy status to sulfonamides; Z88.6 Allergy status to analgesic agent; Z91.011 Allergy to milk products; Z90.710 Acquired absence of both cervix and uterus
CPT/HCPCS: 36415; 71010; 74177; 80048; 80053; 81001; 82553; 83690; 83735; 83880; 84484; 85027; 87086; 93005; G0378; G0379; J0696; J2405; Q9967; 97110; 97530; 97535

== ENCOUNTER 2016-11-21 16:35 | Inpatient (IN) | payer MEDICARE ==
[~2016-11-21] VITALS: Ht 157.5 cm; Wt 56.8 kg
[~2016-11-21 16:35] MED LIST changes: +BISA5TAB4 PO; +DONE10TA7 PO; +MULT-658 PO; +ROPI1TAB PO; +SIMV10TA3 PO; +[UNRECOGNIZED DRUG - OTHER] PO
[2016-11-21] MEDS ORDERED: MORPHINE SULFATE 4 MG/ML DISP.SYRIN. IV/SQ PRN (18:00)
[2016-11-21] MEDS ORDERED: ONDANSETRON PF 4 MG/2 ML VIAL. IV ONE (18:10)
[2016-11-21] MEDS ORDERED: IV NORMAL SALINE 1,000ML 1,000 ML IV SCH (18:10)
--- NOTE | 2016-11-21 18:15 | PHYS DOC ---
General Chief Complaint: ABDOMINAL PAIN Stated Complaint: ABD PAIN Time Seen by MD: 16:53 Source: patient Exam Limitations: no limitations Problems: (JOSE WINSTON DO) Time Seen by MD: 18:31 Problems: (BENNY QUEZADA MD) History of Present Illness Initial Comments Pt is 71/F to ED c/o abdominal pain. Pt states that since 10/06 she has had worsening abdominal pain and distention. She points across her lower abdomen a band like pattern pain across her low abdomen. She has history of irritable bowel syndrome and multiple bowel obstructions among other chronic conditions. She says she's had decreasing size of bowel movements for the past 6 weeks as well, she seen no blood in her stool and denies dark tarry stools, she has had bloating of her abdomen for 1 month. She has not seen a GI specialist for some time and states her last scope was 6 years ago. She denies history of colon cancer, she does relate that April last year she weight 180 pounds and states today she is 125 pounds there is weight loss unintentionally. She's only had one episode of emesis on October 11 otherwise just nausea. Today she says she experienced sudden onset of severe left-sided abdominal pain described as sharp and crampy 10 out of 10 worse with movement and somewhat relieved with rest. Symptoms are consistent with early symptoms of prior bowel obstructions. Denies fever chills sweats or myalgias no chest pain or trouble breathing no headache or focal weakness. Timing/Duration: getting worse, other Severity: severe Modifying Factors: worse with eating, worse with movement, improves with rest Associated Symptoms: loss of appetite, malaise, nausea/vomiting, weakness, other (JOSE WINSTON DO) Allergies: Coded Allergies: gluten (Verified Allergy, Intermediate, 05/05/16) lactase (Verified Allergy, Intermediate, 05/05/16) aspirin (Verified Allergy, Mild, rash, 04/05/14) latex (Verified Allergy, Mild, rash, 04/05/14) metoclopramide (Verified Allergy, Mild, rash, 04/05/14) oxycodone (Verified Allergy, Mild, hives, 04/05/14) sulfamethoxazole (Verified Allergy, Mild, hives, 04/05/14) trimethoprim (Verified Allergy, Mild, hives, 04/05/14) Past Medical History Medical History: other (anxiety, COPD, depression, fibromyalgia, GERD, hyperlipidemia, hypertension, dementia, small bowel obstruction, constipation predominant irritable bowel syndrome, Parkinson's disease, fatty liver, diverticulosis, urinary tract infection) Surgical History: other (appendectomy, cholecystectomy, hysterectomy, bladder suspension, rectocele 2, 3 lumbar procedures) (JOSE WINSTON DO) Social History Smoker: non-smoker Alcohol: none Drugs: none (JOSE WINSTON DO) Review of Systems Constitutional: denies chills, denies diaphoresis, denies fever, malaise, weakness Respiratory: denies cough, denies shortness of breath, denies wheezing Cardiovascular: denies chest pain, denies palpitations, denies syncope Gastrointestinal: see HPI Genitourinary: denies dysuria, denies frequency, denies hematuria Musculoskeletal: denies gout, denies joint swelling, denies neck pain Psychiatric/Neurological: denies headache, denies numbness, denies paresthesia , denies weakness (JOSE WINSTON DO) Physical Exam General Appearance: no apparent distress, thin Eyes: bilateral eye normal inspection, bilateral eye PERRL, bilateral eye EOMI Ear, Nose, Throat: hearing grossly normal, normal ENT inspection, normal pharynx (dry mucous membranes), other (whitish exudate of the tongue no erythema or bleeding) Neck: non-tender, supple Respiratory: normal breath sounds, no respiratory distress Cardiovascular: normal peripheral pulses, regular rate, rhythm Gastrointestinal: soft (distended, generalized tenderness with exquisite tenderness at the left abdomen with rebound tenderness no palpable masses) Back: no CVA tenderness, no vertebral tenderness Extremities: non-tender, normal inspection Neurologic/Psychiatric: family support specialist II-XII nml as tested, no motor/sensory deficits, alert, normal mood/affect, oriented x 3 Skin: pallor (poor turgor) (JOSE WINSTON DO) Orders, Labs, Meds 1843: Orders entered, studies are pending. Patient signed out to Dr. Quezada at 1800 shift change see his documentation for results and disposition. (JOSE WINSTON DO) Orders, Labs, Meds ER Joe attending note Dr. Benny Quezada assumed by me at 1800. Initial care provided by Dr. Marrero and at the time of assumption of care labs and CT pending Patient well-appearing with diffuse abdominal pain but no guarding or rebound on my exam. Normal bowel sounds. No mass or megaly. Labs with elevated white blood cell count 13.8. CT consistent with diverticulitis but no perforation or abscess. Vital signs stable. She still has nausea and persistent pain and does not feel like she could manage as an outpatient. Case discussed with Dr. Estevez' s most on-call. Dr. Estevez is aware of history and findings and agrees with inpatient admission to her service. patient stable for admission. (BENNY QUEZADA MD) JOSE WINSTON DO Nov 21, 2016 18:15 BENNY QEUZADA MD Nov 22, 2016 04:15
[2016-11-21 18:39] LABS: BASO # 0.1 x10^3/uL (0.0-0.2); BASO % 1 % (0-3); EOS # 0.1 x10^3/uL (0.0-0.7); EOS % 1 % (0-3); HEMATOCRIT 43.1 % (36.0-47.0); HEMOGLOBIN 14.9 g/dL (12.0-15.5); LYMPH # 1.5 x10^3/uL (1.0-4.8); LYMPH % 11 % (24-48); MEAN CORPUSCULAR HEMOGLOBIN 31 pg (25-35); MEAN CORPUSCULAR HGB CONC 35 g/dL (31-37); MEAN CORPUSCULAR VOLUME 88 fL (79-100); MONO # 0.7 x10^3/uL (0.0-1.1); MONO % 5 % (0-9); NEUT # 11.4 x10^3uL (1.8-7.7); NEUT % 83 % (31-73); PLATELET COUNT 498 x10^3/uL (140-400); RED CELL DISTRIBUTION WIDTH 14.6 % (11.5-14.5); WHITE BLOOD COUNT 13.8 x10^3/uL (4.0-11.0)
[2016-11-21 18:44] LABS: HEMOGLOBIN ISTAT 15.3 gm/dL; POTASSIUM ISTAT 3.3 mmol/L (3.5-5.0)
[2016-11-21 18:52] LABS: ALBUMIN 4.2 g/dL (3.4-5.0); CALCIUM 9.1 mg/dL (8.5-10.1); CREATININE 1.1 mg/dL (0.6-1.0); GFR 49.1; POTASSIUM 3.3 mmol/L (3.5-5.1); TOTAL BILIRUBIN 0.5 mg/dL (0.2-1.0); TOTAL PROTEIN 8.4 g/dL (6.4-8.2)
--- NOTE | 2016-11-21 19:05 | RAD ---
History: Abdominal pain and distention. Constipation and nausea. Comparison: None. Technique: CT of the abdomen and pelvis was performed without intravenous or oral contrast. Exposure: One or more of the following individualized dose reduction techniques were utilized for this examination: 1. Automated exposure control 2. Adjustment of the mA and/or kV according to patient size 3. Use of iterative reconstruction technique Findings: Evaluation of solid organs of the abdomen and pelvis is limited by lack of intravenous contrast. Evaluation of enteric structures may be limited by lack of oral contrast. Liver, spleen, pancreas, and bilateral adrenal glands are unremarkable. Cholecystectomy clips are present. Bilateral kidneys and ureters are free of stone or obstruction. There is no evidence of small bowel obstruction. Urinary bladder is unremarkable. Uterus is absent. Colonic diverticulosis is noted, especially in the sigmoid colon. There is fat stranding and wall thickening involving the sigmoid colon, compatible with acute diverticulitis. No perforation or abscess is seen. There is a moderate amount of stool present in the colon proximal to the sigmoid diverticulitis. Levoconvex degenerative scoliosis of the spine is seen. Impression: 1. CT evidence of acute diverticulitis involving the sigmoid colon. No perforation or abscess is seen at this time. 2. When acute issues have resolved, if not performed recently, colonoscopy could be performed to exclude presence of mass. 3. Moderate colonic stool. Electronically signed by: Benny Madrigal MD (11/21/2016 7:02 PM)
[2016-11-21] MEDS ORDERED: KETOROLAC 30 MG/ML VIAL. IV ONE (19:10)
[2016-11-21 21:00] LABS: AMORPHOUS SEDIMENT,UR PRESENT /HPF; BACTERIA,URINE 0 /HPF (0-FEW); BILIRUBIN,URINE NEG (NEG); CLARITY,URINE CLEAR; COLOR,URINE STRAW; GLUCOSE,URINE NEG (NEG); NITRITE,URINE NEG (NEG); RBC,URINE 0 /HPF (0-2); SQUAMOUS EPITHELIAL CELL,UR OCC /LPF; UROBILINOGEN,URINE 0.2 mg/dL (0.2 mg/dL); WBC,URINE OCC /HPF (0-4)
[2016-11-21] MEDS ORDERED: IV NORMAL SALINE 1,000ML 1,000 ML IV ONE (22:10)
[2016-11-21] MEDS ORDERED: CIPROFLOXACIN 400MG PREMIX 200 ML IV ONE (22:10)
--- NOTE | 2016-11-21 22:58 | ACF ---
Admission Criteria Forms DIVERTICULITIS, ACUTE Clinical Indications for Admission to Inpatient Care (Place 'X' for any and all applicable criteria): Admission is indicated for ANY ONE of the following (1)(2)(3)(4): [ ]I. Peritoneal signs on physical examination (eg, acute abdominal pain, abdominal tenderness and guarding) [ ]II. Hemodynamic instability [ ]III. Persistent gross bleeding per rectum [ ]IV. Need for inpatient surgical intervention [ ]V. Significant abnormality on imaging study including ANY ONE of the following: [ ]a) Abscess [ ]b) Obstruction [ ]c) Fistula [ ]d) Ileus [ ]e) Free perforation [ ]. Immunocompromised patient (steroid use, chemotherapy, uremia, AIDS , transplant patient ) with acute symptoms [X]VII Inpatient admission required rather than observation care (also use Diverticulitis, Acute: Observation Care as appropriate) because of ANY ONE of the following: [ ]a) High fever or infection. requiring inpatient admission as indicated by ANY ONE of the following(5): [ ]1) Appropriate outpatient or observation care antimicrobial treatment unavailable, not effective, not feasible [ ]2) Temperature > 103.1 degrees F (39.5 degrees C) (oral) or < 96.8 degrees F (36 degrees C)(rectal) that does not respond to all emergency treatment measures [ ]3) Temperature> 104.9 degrees F (40.5 degrees C)( oral) [ ]4) Documented bacteremia [X]b) Severe pain requiring acute inpatient management [ ]c) Severe electrolyte abnormalities requiring inpatient care [ ]d) Ongoing transfusion for blood loss (> 2 units) [ ]e) IV fluid to replace significant ongoing losses (> 3 L/m2 per day) [ ]f) Parenteral nutrition regimen that must be implemented on inpatient basis [X]g) Other condition, treatment or monitoring requiring inpatient admission Extended stay beyond goal length of stay may be needed for (2) (15) : [ ]a) Unresolved symptoms (19) [ ]b) Complications [ ]c) Diverticular hemorrhage(2) The original [facility] [employer] content created by [facility] [employer] has been revised. The portions of the content which have been revised are identified through the use of italic text or in bold, and [facility] has neither reviewed nor approved the modified material. All other unmodified content is copyright [facility]. Please see references footnoted in the original [facility] edition 2016 Admission Criteria Met?: Yes LAITH HESS. Nov 21, 2016 22:58
[2016-11-22 00:41] VITALS: BP 118/71
[2016-11-22] MEDS: MORPHINE SULFATE 2 MG/ML DISP.SYRIN. IV PRN ×3 (00:57→12:38)
[2016-11-22] MEDS: IV NORMAL SALINE 1,000ML 1,000 ML IV SCH ×4 (00:57→18:15)
[2016-11-22] MEDS ORDERED: CYCL1DRO OU (01:01)
[2016-11-22] MEDS ORDERED: POTA20TA4 PO (01:01)
[2016-11-22] MEDS ORDERED: BUSP5TAB PO (01:01)
[2016-11-22] MEDS ORDERED: AMLO10TA4 PO (01:01)
[2016-11-22] MEDS ORDERED: MELA1TAB2 PO (01:01)
[2016-11-22] MEDS ORDERED: ONDA4TAB7 PO (01:01)
[2016-11-22] MEDS ORDERED: SORB1SOL PO (01:01)
[2016-11-22] MEDS ORDERED: MOME45OI2 TP (01:01)
[2016-11-22] MEDS ORDERED: ACET325T21 PO (01:01)
[2016-11-22] MEDS ORDERED: VENL75CA PO (01:01)
[2016-11-22] MEDS ORDERED: TRAZ50TA15 PO (01:01)
[2016-11-22] MEDS ORDERED: SENN-6 PO (01:01)
[2016-11-22] MEDS ORDERED: POTASSIUM CHLORIDE 20 MEQ TABLET.ER. PO ONE (01:30)
--- NOTE | 2016-11-22 01:42 | NUR ---
The patient, ROSALES TREADWELL, 71 y/o, F admitted by KEENAN GALLEGOS DO, was given written information regarding hospital policies, unit procedures and contact persons. Pt experiencing frequent nausea and episodes of vomiting through out the day, unable to keep PO intake down. Pt admitted for acute diverticulitis. Vital signs assessed and stable. Reviewed plan of care with pt. Oriented pt to room and safety precautions. Valuables were checked and left in room with patient.
[2016-11-22 05:00] VITALS: BP 121/74
[2016-11-22 06:31] LABS: BASO % 0 % (0-3); EOS # 0.1 x10^3/uL (0.0-0.7); EOS % 1 % (0-3); HEMATOCRIT 36.6 % (36.0-47.0); HEMOGLOBIN 12.6 g/dL (12.0-15.5); LYMPH # 1.2 x10^3/uL (1.0-4.8); LYMPH % 20 % (24-48); MEAN CORPUSCULAR HEMOGLOBIN 31 pg (25-35); MEAN CORPUSCULAR HGB CONC 35 g/dL (31-37); MEAN CORPUSCULAR VOLUME 89 fL (79-100); MONO # 0.4 x10^3/uL (0.0-1.1); MONO % 7 % (0-9); NEUT # 4.3 x10^3uL (1.8-7.7); NEUT % 71 % (31-73); PLATELET COUNT 349 x10^3/uL (140-400); RED BLOOD COUNT 4.14 x10^6/uL (3.50-5.40); RED CELL DISTRIBUTION WIDTH 14.4 % (11.5-14.5)
[2016-11-22 06:47] LABS: GFR 54.8; MAGNESIUM 1.9 mg/dL (1.8-2.4)
[2016-11-22 07:38] LABS: ALBUMIN 3.1 g/dL (3.4-5.0); ALBUMIN/GLOBULIN RATIO 1.1 (1.0-1.7); CALCIUM 7.8 mg/dL (8.5-10.1); POTASSIUM 4.4 mmol/L (3.5-5.1); TOTAL BILIRUBIN 1.4 mg/dL (0.2-1.0)
[2016-11-22] MEDS: POTASSIUM CHLORIDE 40 MEQ in IV RINGERS SOLUTION,LACTATED 1,000 ML IV SCH ×2 (07:55→19:50)
[2016-11-22] MEDS: KETOROLAC 15 MG/ML VIAL. IV PRN ×3 (08:01→22:21)
[2016-11-22] MEDS ORDERED: CIPROFLOXACIN 400MG PREMIX 200 ML IV SCH (09:00)
[2016-11-22 10:46] VITALS: BP 134/77
--- NOTE | 2016-11-22 11:40 | NUR ---
NURSING NOTE: AM NS non-administered d/t new orders received for LR w/ Potassium.
[2016-11-22] MEDS: ONDANSETRON PF 4 MG/2 ML VIAL. IV PRN (13:20)
[2016-11-22] MEDS ORDERED: PIP/TAZO PER PHARMACY MC PRN (14:00)
--- NOTE | 2016-11-22 14:11 | PDOC1 ---
History and Physicial This is a history and physical on [facility] Admission 11/21/16 Reason for admission: History of present illness: This is a 71-year-old female through the emergency room with a complaint of ongoing abdominal pain which has gotten worse. Started around 550 T. She was actually admitted to the hospital in September 30 with recurrent bouts of nausea and vomiting. Ports that she does have seborrheic and gluten problems and has to be dairy free is well. She denies a fever but states that she's had chills and sweats denies bloody stools but states the character of her bowel movements have gotten larger. Past medical history: Ureteral bowel syndrome, hypertension, hyperlipidemia, asthma, celiac disease, fibromyalgia, Parkinson's disease, and admission to [facility] in September 2016 for constipation nausea and vomiting, mild cva, UTI , fall Past surgical history: Appendectomy, cholecystectomy, partial hysterectomy, bladder and rectocele repair, repair of bowel obstructions, scar tissue removal , 3 back surgeries on L4 and L5 Allergies: aspirin, gluten, lactase, latex, metoclopramide, oxycodone, sulfamethoxazole, trimethoprim Medications: Please see MRAD Social history: She recently moved into intermediate. She is and . She has 1 son and 1 daughter. Tobacco none, alcohol none, Family history: She has 2 brothers, 1 older and healthy and one younger has spina bifida. Father at age 97 due to intracranial hemorrhage. Mother at age 90 of a cardiac arrest. Review systems positive : for 50 pound weight loss since April 2016, , chills and sweats, short term memory lossrest neg Physical Exam: Frail appearing female in no acute distress HEENT: She is edentulous, throat was clear, tongue was moist, pupils were equal round react to light and accommodation, hearing is normal Pulmonary: Lungs were clear to auscultation Cardiovascular regular rhythm and rate without murmur The abdomen was soft bowel sounds are positive she is mildly diffusely tender throughout no masses were palpated. Extremities without edema Cognitively she appears intact complains of short-term memory loss Studies: CT of the abdomen and pelvis show evidence of diverticulitis. Gallbladder is absent. Liver spleen and pancreas appear normal. Laboratory LABS: White blood cell elevated at 12.8, initially liver function tests yesterday were normal as well as lipase and amylase. Morning blood work show unexpected rise in M AST, ALP alkaline phosphatase and bilirubin. Assessment #1 diverticulitis #2 transaminitis-this may be due to Cipro and Flagyl as it does not fit the picture of diverticulitis #3 SIRS #4 celiac disease #5 -50 pound weight loss question etiology #6 DVT prophylaxis Plan: Discontinue Cipro and Flagyl as this can cause transaminitis. Get a stat liver ultrasound. Repeat all labs. Start her on Zosyn. Monitor closely. Discussed with Dr. Dawson and Dr. Hurtado Problems: KEENAN GALLEGOS DO Nov 22, 2016 14:11
[2016-11-22 14:28] LABS: ALBUMIN 3.2 g/dL (3.4-5.0); ALBUMIN/GLOBULIN RATIO 0.9 (1.0-1.7); CALCIUM 8.3 mg/dL (8.5-10.1); GFR 54.8; POTASSIUM 4.3 mmol/L (3.5-5.1); TOTAL BILIRUBIN 1.6 mg/dL (0.2-1.0); TOTAL PROTEIN 6.8 g/dL (6.4-8.2)
[2016-11-22 15:08] VITALS: BP 120/76
[2016-11-22] MEDS ORDERED: PIPERACILLIN/TAZOBACTAM 3.375 GM in IV NORMAL SALINE 50ML 50 ML IV SCH (16:00)
[2016-11-22] MEDS: PIPERACILLIN/TAZOBACTAM 3.375 GM in IV NORMAL SALINE 50ML 50 ML IV SCH ×2 (16:11→22:21)
[2016-11-22] MEDS: ENOXAPARIN 30 MG/0.3 ML DISP.SYRIN. SQ SCH (16:12)
--- NOTE | 2016-11-22 16:50 | RAD ---
Exam: Hepatic venous Doppler HISTORY: Sudden increase in liver enzymes. DATE OF SERVICE: 11/22/2016 COMPARISON: CT abdomen and pelvis from 11/21/2016 Discussion: Real-time bustillos scale, color flow, duplex Doppler and spectral analysis of the splenoportal axis is performed and images are obtained. Normal hepatopedal flow is seen in the splenic and portal veins. Normal and hepatofugal flow seen in the hepatic veins. Tiny fluid collection in the right lower quadrant. IMPRESSION: Essentially unremarkable portal venous Doppler. Electronically signed by: Emily Mejía MD (11/22/2016 4:46 PM)
[2016-11-22 19:29] VITALS: BP 121/79
[2016-11-22] MEDS: traZODone 50 MG TABLET. PO SCH (22:45)
[2016-11-23] MEDS: PIPERACILLIN/TAZOBACTAM 3.375 GM in IV NORMAL SALINE 50ML 50 ML IV SCH ×4 (03:17→21:21)
[2016-11-23] MEDS: POTASSIUM CHLORIDE 40 MEQ in IV RINGERS SOLUTION,LACTATED 1,000 ML IV SCH ×2 (03:17→16:43)
[2016-11-23 06:07] VITALS: BP 115/65
[2016-11-23 07:08] LABS: ALBUMIN 2.9 g/dL (3.4-5.0); ALBUMIN/GLOBULIN RATIO 0.9 (1.0-1.7); CALCIUM 8.1 mg/dL (8.5-10.1); CREATININE 1.1 mg/dL (0.6-1.0); GFR 49.1; MAGNESIUM 1.9 mg/dL (1.8-2.4); POTASSIUM 4.6 mmol/L (3.5-5.1); TOTAL BILIRUBIN 1.2 mg/dL (0.2-1.0); TOTAL PROTEIN 6.2 g/dL (6.4-8.2)
[2016-11-23] MEDS ORDERED: ONDANSETRON ODT 4 MG TAB.RAPDIS PO PRN (08:00)
[2016-11-23] MEDS: CARBIDOPA/LEVODOPA 25/100MG TABLET PO SCH ×4 (08:23→20:22)
[2016-11-23] MEDS: busPIRone 5 MG TABLET. PO SCH ×3 (08:23→16:22)
[2016-11-23] MEDS: rOPINIRole 0.5 MG TABLET. PO SCH ×3 (08:23→20:22)
[2016-11-23] MEDS: SENNOSIDES/DOCUSATE 8.6/50MG TABLET. PO SCH ×2 (08:23→20:22)
[2016-11-23] MEDS: KETOROLAC 15 MG/ML VIAL. IV PRN ×3 (08:23→23:17)
[2016-11-23] MEDS: BISACODYL TAB 5 MG TABLET.DR. PO SCH (08:24)
[2016-11-23] MEDS: cycloSPORINE 0.05% OPTH 1 DROP DROPERETTE OU SCH ×2 (08:24→20:23)
[2016-11-23] MEDS: FOLIC ACID 1 MG TABLET PO SCH (08:24)
[2016-11-23] MEDS: rOPINIRole 1 MG TABLET. PO SCH ×3 (08:31→20:23)
[2016-11-23 12:17] VITALS: BP 113/64
[2016-11-23] MEDS: ENOXAPARIN 30 MG/0.3 ML DISP.SYRIN. SQ SCH (14:54)
--- NOTE | 2016-11-23 15:29 | PDOC ---
PROVIDER NOTE PROVIDER NOTE PROVIDER NOTE Progress note on Angella Nunes on 74. Problems: 1 acute diverticulitis #2 transaminitis #3 transient transient increase in lipase now normal #4 sepsis with diverticulitis #5 50 pound weight loss questionable etiology #6 DVT prophylaxis 71-year-old female minute with abdominal pain. Found to have diverticulitis. She developed transaminitis and elevated lipase with [place] due to the Cipro and metronidazole all. This was discontinued and she was placed on Zosyn. Values are trending down.. Still has abdominal pain Subjective temp 97.5 pulse 64 respirations 18 and saturation 99% on room air She is resting quietly in bed, her tongue was moist, her neck was supple, lungs clear, cardiovascular regular rhythm and rate without murmur, the abdomen was soft she has loud bowel sounds she is diffusely tender throughout there are no masses palpated. Extremities were without edema. Auditory liver function tests trending down. Likewise lipase has normalized. CBC white count was normal now Plan continue IV fluids. I have clear liquids. Continue IV N biotics. She may need a CT with contrast or an MRI if things don't continue to improve. She will have liver function Tests done again tomorrow. KEENAN GALLEGOS DO Nov 23, 2016 15:29
[2016-11-23] MEDS ORDERED: MAGNESIUM CITRATE 296 ML SOLUTION. PO ONE (16:00)
[2016-11-23 16:37] VITALS: BP 143/86
--- NOTE | 2016-11-23 16:51 | NUR ---
CONSULT: Routine consult called to Dr. Anna. No return call at this time.
[2016-11-23 19:11] VITALS: BP 130/74
[2016-11-23] MEDS ORDERED: MORPHINE SULFATE 2 MG/ML DISP.SYRIN. IV PRN (19:30)
[2016-11-23] MEDS: ONDANSETRON PF 4 MG/2 ML VIAL. IV PRN (19:39)
[2016-11-23] MEDS: DULoxetine HCL 60 MG CAPSULE.DR PO SCH (20:22)
[2016-11-23] MEDS: traZODone 50 MG TABLET. PO SCH (20:22)
[2016-11-23] MEDS: lamoTRIgine 100 MG TABLET. PO SCH (20:25)
[2016-11-23] MEDS: MELATONIN 3 MG TABLET PO SCH (20:25)
[2016-11-23] MEDS ORDERED: traZODone 50 MG TABLET. PO SCH (21:00)
[2016-11-23 22:19] VITALS: BP 152/84
[2016-11-24] MEDS: POTASSIUM CHLORIDE 40 MEQ in IV RINGERS SOLUTION,LACTATED 1,000 ML IV SCH ×3 (02:18→21:12)
[2016-11-24] MEDS: PIPERACILLIN/TAZOBACTAM 3.375 GM in IV NORMAL SALINE 50ML 50 ML IV SCH ×4 (03:45→22:10)
[2016-11-24 05:15] VITALS: BP 131/74
[2016-11-24] MEDS: KETOROLAC 15 MG/ML VIAL. IV PRN ×3 (06:09→22:13)
[2016-11-24 06:14] LABS: BASO # 0.1 x10^3/uL (0.0-0.2); BASO % 1 % (0-3); EOS # 0.2 x10^3/uL (0.0-0.7); EOS % 3 % (0-3); HEMATOCRIT 37.1 % (36.0-47.0); HEMOGLOBIN 12.7 g/dL (12.0-15.5); LYMPH % 23 % (24-48); MEAN CORPUSCULAR HEMOGLOBIN 30 pg (25-35); MEAN CORPUSCULAR HGB CONC 34 g/dL (31-37); MEAN CORPUSCULAR VOLUME 88 fL (79-100); MONO # 0.6 x10^3/uL (0.0-1.1); MONO % 7 % (0-9); NEUT # 5.8 x10^3uL (1.8-7.7); NEUT % 67 % (31-73); PLATELET COUNT 329 x10^3/uL (140-400); RED BLOOD COUNT 4.19 x10^6/uL (3.50-5.40); RED CELL DISTRIBUTION WIDTH 14.3 % (11.5-14.5); WHITE BLOOD COUNT 8.7 x10^3/uL (4.0-11.0)
[2016-11-24 06:26] LABS: ALBUMIN 2.9 g/dL (3.4-5.0); ALBUMIN/GLOBULIN RATIO 0.8 (1.0-1.7); CALCIUM 8.2 mg/dL (8.5-10.1); CREATININE 1.1 mg/dL (0.6-1.0); GFR 49.1; MAGNESIUM 2.3 mg/dL (1.8-2.4); POTASSIUM 4.1 mmol/L (3.5-5.1); TOTAL BILIRUBIN 0.7 mg/dL (0.2-1.0); TOTAL PROTEIN 6.4 g/dL (6.4-8.2)
[2016-11-24] MEDS: PANTOPRAZOLE IV PUSH 40 MG VIAL. IVP SCH (07:30)
[2016-11-24] MEDS: rOPINIRole 0.5 MG TABLET. PO SCH ×3 (08:07→20:24)
[2016-11-24] MEDS: FOLIC ACID 1 MG TABLET PO SCH (08:07)
[2016-11-24] MEDS: CARBIDOPA/LEVODOPA 25/100MG TABLET PO SCH ×4 (08:07→20:24)
[2016-11-24] MEDS: SENNOSIDES/DOCUSATE 8.6/50MG TABLET. PO SCH ×2 (08:07→20:24)
[2016-11-24] MEDS: rOPINIRole 1 MG TABLET. PO SCH ×3 (08:07→20:26)
[2016-11-24] MEDS: busPIRone 5 MG TABLET. PO SCH ×3 (08:07→16:35)
[2016-11-24] MEDS: cycloSPORINE 0.05% OPTH 1 DROP DROPERETTE OU SCH ×2 (08:08→20:23)
[2016-11-24] MEDS: ONDANSETRON PF 4 MG/2 ML VIAL. IV PRN (09:10)
[2016-11-24 10:59] VITALS: BP 121/64
[2016-11-24 13:09] LABS: HCV ANTIBODY <0.1 s/co ratio (0.0-0.9); HEP A IGM ABDY Negative (Negative)
--- NOTE | 2016-11-24 13:30 | NUR ---
CALLED CONSULT IN AGAIN TO DR BELTRAN'S OFFICE. HAD NOT HEARD FROM OR OFFICE
--- NOTE | 2016-11-24 14:27 | PDOC2 ---
CONSULT Date of Admission DATE: 11/24/16 TIME: 14:14 Reason for Consult: diverticulitis, constipation Referring Physician: Dr Estevez Chief Complaint abdominal pain Source: Chart review, Patient Problem List Problems Medical Problems: (1) Diverticulitis Status: Acute History of Present Illness Reports worsening of symptoms that have been occurring for six weeks. Last BM was 11/20 and was the size of her finger tip. She reports this has been ongoing since the end september. She has a significant history of constipation. Last colonoscopy was 5 years ago, polyp and diverticulosis. First episode of diverticulitis. The severe pain started Thursday diffusely across abdomen. She reports she has received laxatives and suppositories while here, with no bowel function. She feels more distended today and continued pain. Denies any chronic pain prior to end september Multiple abdominal surgeries including a twisted cecum--she is sure if any resection was done, does report "cecum was sutured back in place where it was suppose to be" Cardiovascular: HTN, hyperipidemia Pulmonary: Asthma CENTRAL NERVOUS SYSTEM: CVA (parkinsons) GI: Constipation, Diverticulosis, Other (celiac disease) Past Surgical History: Appendectomy, Cholecystectomy, Hysterectomy, Other ( bowel surger for twisted cecum) Family History: Coronary Artery Disease Smoke: No ALCOHOL: none Drugs: None Lives: Alone Current Medications Current Medications Morphine Sulfate (Morphine 4mg Syringe) 4 mg PRN Q15MIN PRN IV/SQ PAIN GREATER THAN 3/10 Last administered on 11/21/16 18:31; Start 11/21/16 at 18:00; Stop at 07:29; Status DC Sodium Chloride 1,000 ml @ 1,000 mls/hr Q1H IV Last administered on 11/21/16 18:10; Start 11/21/16 at 18:10; Stop 11/21/16 at 19:09; Status DC Ondansetron HCl (Zofran) 4 mg 1X ONCE IV Last administered on 11/21/16 18:10 ; Start 11/21/16 at 18:10; Stop 11/21/16 at 18:11; Status DC Ketorolac Tromethamine (Toradol) 30 mg 1X ONCE IV Last administered on 19:10; Start 11/21/16 at 19:10; Stop 11/21/16 at 19:11; Status DC Ciprofloxacin Lactate 200 ml @ 200 mls/hr 1X ONCE IV Last administered on 22:10; Start 11/21/16 at 22:10; Stop 11/21/16 at 23:09; Status DC Metronidazole 100 ml @ 200 mls/hr 1X ONCE IV Last administered on 11/22/16 00 :58; Start 11/21/16 at 22:10; Stop 11/21/16 at 22:39; Status DC Sodium Chloride 1,000 ml @ 1,000 mls/hr 1X ONCE IV Last administered on 22:10; Start 11/21/16 at 22:10; Stop 11/21/16 at 23:09; Status DC Morphine Sulfate (Morphine 2mg Syringe) 2 mg PRN Q2HR PRN IV PAIN Last administered on 11/22/16 12:38; Start 11/21/16 at 22:15; Stop 11/22/16 at 22:14; Status DC Sodium Chloride 1,000 ml @ 150 mls/hr Q6H40M IV Last administered on 11/22/16 00:57; Start 11/21/16 at 22:15; Stop 11/22/16 at 22:14; Status DC Potassium Chloride (Klor-Con) 40 meq 1X ONCE PO Last administered on 11/22/16 01:51; Start 11/22/16 at 01:30; Stop 11/22/16 at 01:31; Status DC Ciprofloxacin Lactate 200 ml @ 200 mls/hr Q12HR IV Last administered on 09:00; Start 11/22/16 at 09:00; Stop 11/22/16 at 13:52; Status DC Metronidazole 100 ml @ 100 mls/hr Q8HRS IV ; Start 11/22/16 at 14:00; Stop at 14:00; Status DC Ketorolac Tromethamine (Toradol) 15 mg PRN Q6HRS PRN IV PAIN Last administered on 11/24/16 12:05; Start 11/22/16 at 07:30; Stop 11/27/16 at 07:29 Potassium Chloride 40 meq/ Lactated Ringer's 1,020 ml @ 100 mls/hr [id number] IV Last administered on 11/24/16 02:18; Start 11/22/16 at 08:00 Ondansetron HCl (Zofran) 4 mg PRN Q6HRS PRN IV NAUSEA/VOMITING Last administered on 11/24/16 09:10; Start 11/22/16 at 13:00 Piperacillin Sod/ Tazobactam Sod (Zosyn Per Pharmacy) 1 each PRN DAILY PRN [facility] SEE COMMENTS; Start 11/22/16 at 14:00 Piperacillin Sod/ Tazobactam Sod 3.375 gm/Sodium Chloride 50 ml @ 100 mls/hr Q6H IV ; Start 11/22/16 at 16:00; Stop 11/22/16 at 16:00; Status DC Piperacillin Sod/ Tazobactam Sod 3.375 gm/Sodium Chloride 50 ml @ 100 mls/hr Q6H IV Last administered on 11/24/16 10:13; Start 11/22/16 at 16:00 Enoxaparin Sodium (Lovenox) 30 mg Q24H SQ Last administered on 11/23/16 14:54; Start 11/22/16 at 15:00 Trazodone HCl (Desyrel) 50 mg QHS PO ; Start 11/23/16 at 21:00; Stop 11/23/16 at 21:00; Status DC Trazodone HCl (Desyrel) 50 mg QHS PO Last administered on 11/23/16 20:22; Start 11/22/16 at 22:45 Pantoprazole Sodium (Protonix Vial) 40 mg DAILYAC IVP Last administered on 07:30; Start 11/24/16 at 07:30 Bisacodyl (Dulcolax Tab) 5 mg QODAY PO Last administered on 11/23/16 08:24; Start 11/23/16 at 09:00 Buspirone HCl (Buspar) 5 mg TIDWMEALS PO Last administered on 11/24/16 12:01; Start 11/23/16 at 08:00 Carbidopa/Levodopa (Sinemet 25/100) 1 tab QID PO Last administered on 11/24/16 08:07; Start 11/23/16 at 09:00 Cyclosporine (Restasis) 1 drop BID OU Last administered on 11/24/16 08:08; Start 11/23/16 at 09:00 Duloxetine HCl (Cymbalta) 60 mg QHS PO Last administered on 11/23/16 20:22; Start 11/23/16 at 21:00 Folic Acid (Folic Acid) 1 mg DAILY PO Last administered on 11/24/16 08:07; Start 11/23/16 at 09:00 Lamotrigine (LaMICtal) 50 mg HS PO Last administered on 11/23/16 20:25; Start 11/23/16 at 21:00 Ropinirole HCl (Requip) 0.5 mg TID PO Last administered on 11/24/16 08:07; Start 11/23/16 at 09:00 Ropinirole HCl (Requip) 1 mg TID PO Last administered on 11/24/16 08:07; Start 11/23/16 at 09:00 Senna/Docusate Sodium (Senna Plus) 2 tab BID PO Last administered on 11/24/16 08:07; Start 11/23/16 at 09:00 Melatonin 4.5 mg HS PO Last administered on 11/23/16 20:25; Start 11/23/16 at 21 :00 Ondansetron HCl (Zofran Odt) 4 mg PRN Q6HRS PRN PO NAUSEA/VOMITING; Start at 08:00 Magnesium Citrate (Citroma) 296 ml 1X ONCE PO Last administered on 11/23/16 16 :21; Start 11/23/16 at 16:00; Stop 11/23/16 at 16:16; Status DC Morphine Sulfate (Morphine 2mg Syringe) 2 mg PRN Q2HR PRN IV PAIN Last administered on 11/23/16 19:39; Start 11/23/16 at 19:30 Active Scripts Active Reported Zofran (Ondansetron Hcl) 4 Mg Tablet 4 Mg PO PRN Q6HRS PRN Trazodone Hcl 50 Mg Tablet 50 Mg PO QHS Sorbitol (Sorbitol Solution) 1 Ml Solution 30 Ml PO PRN DAILY PRN Senna S Tablet (Sennosides/Docusate Sodium) 1 Each Tablet 2 Tab PO BID Restasis (Cyclosporine) 1 Each Droperette 1 Drop OU BID Klor-Con M20 (Potassium Chloride) 20 Meq Tab.er.prt 40 Meq PO DAILY Mometasone Furoate 45 Gm Oint...g. 1 Dina TP DAILY Melatonin 5 Mg Tablet (Melatonin/Pyridoxine) 1 Each Tablet 5 Mg PO QHS Effexor Xr (Venlafaxine Hcl) 75 Mg Cap.er.24h 75 Mg PO DAILY Buspirone Hcl 5 Mg Tablet 5 Mg PO TIDWMEALS Acetaminophen 325 Mg Tablet 650 Mg PO PRN Q6HRS PRN Norvasc (Amlodipine Besylate) 10 Mg Tablet 10 Mg PO DAILY Centrum Silver Tablet (Multivits-Min/Fa/Lycopene/Lut) 1 Each Tablet 1 Tab PO DAILY Probiotic 4X Caplet (B Infantis/B Ani/B Ozzy/B Bifid) 1 Each Tablet.dr 2 Tab PO DAILY Bisacodyl 5 Mg Tablet.dr 5 Mg PO QODAY Requip (Ropinirole Hcl) 1 Mg Tablet 1 Mg PO TID Requip (Ropinirole Hcl) 0.5 Mg Tablet 0.5 Mg PO TID Simvastatin 10 Mg Tablet 10 Mg PO QHS Lamotrigine 100 Mg Tablet 50 Mg PO HS Donepezil Hcl 10 Mg Tablet 10 Mg PO DAILY Sinemet 25-100 Mg Tablet (Carbidopa/Levodopa) 1 Each Tablet 1 Tab PO QID Folic Acid 1 Mg Tablet 1 Mg PO DAILY Cymbalta (Duloxetine Hcl) 60 Mg Capsule.dr 60 Mg PO QHS Allergies: Coded Allergies: gluten (Verified Allergy, Intermediate, 05/05/16) lactase (Verified Allergy, Intermediate, 05/05/16) aspirin (Verified Allergy, Mild, rash, 04/05/14) latex (Verified Allergy, Mild, rash, 04/05/14) metoclopramide (Verified Allergy, Mild, rash, 04/05/14) oxycodone (Verified Allergy, Mild, hives, 04/05/14) sulfamethoxazole (Verified Allergy, Mild, hives, 04/05/14) trimethoprim (Verified Allergy, Mild, hives, 04/05/14) General: No: Chills, Other (fevers) PSYCHOLOGICAL ROS: No: Anxiety, Depression Eyes: No: Blurry vision, Double vision HEENT: No: Heacaches, Sore Throat Hematological and Lymphatic: No: Bleeding Problems, Blood Clots Respiratory: No: Cough, SOB with excertion Cardiovascular: No: Chest Pain, Palpitations Gastrointestinal: YES: Other (ee hpi) Genitourinary: No: Dysuria, Henaturia Musculoskeletal: No: Joint Pain, Muscle Pain Neurological: YES: Memory Loss, No: Impaired Coord/balance, Numbness/Tingling Skin: No: Pruritus, Rash General: Alert, Oriented X3, Cooperative, No acute distress HEENT: PERRLA, Mucous membr. moist/pink Lungs: Clear to auscultation, Normal air movement Heart: Regular rate, Normal S1, Normal S2, No murmurs Abdomen: Soft, Other (moderately distended, she is tender to left abdomen, upper and lower) Extremities: No clubbing, No cyanosis Skin: No rashes, No breakdown Neuro: Normal gait, Normal speech Psych/Mental Status: Mental status NL VITALS Vital Signs Date Time Temp Pulse Resp B/P (MAP) Pulse Ox O2 Delivery O2 Flow Rate FiO2 11/24/16 10:59 98.0 68 18 121/64 (83) Room Air 96.0 11/24/16 05:15 94 Labs Laboratory Tests Test 11/23/16 06:17 11/24/16 05:46 Sodium Level 144 mmol/L (136-145) 143 mmol/L (136-145) Potassium Level 4.6 mmol/L (3.5-5.1) 4.1 mmol/L (3.5-5.1) Chloride Level 108 mmol/L (98-107) 105 mmol/L (98-107) Carbon Dioxide Level 27 mmol/L (21-32) 28 mmol/L (21-32) Anion Gap 9 (6-14) 10 (6-14) Blood Urea Nitrogen 11 mg/dL (7-20) 9 mg/dL (7-20) Creatinine 1.1 mg/dL (0.6-1.0) 1.1 mg/dL (0.6-1.0) Estimated GFR (Cockcroft-Gault) 49.1 49.1 BUN/Creatinine Ratio 10 (6-20) 8 (6-20) Glucose Level 75 mg/dL (70-99) 84 mg/dL (70-99) Calcium Level 8.1 mg/dL (8.5-10.1) 8.2 mg/dL (8.5-10.1) Magnesium Level 1.9 mg/dL (1.8-2.4) 2.3 mg/dL (1.8-2.4) Total Bilirubin 1.2 mg/dL (0.2-1.0) 0.7 mg/dL (0.2-1.0) Aspartate Amino Transf (AST/SGOT) 340 U/L (15-37) 132 U/L (15-37) Alanine Aminotransferase (ALT/SGPT) 406 U/L (14-59) 98 U/L (14-59) Alkaline Phosphatase 191 U/L (46-116) 170 U/L (46-116) Total Protein 6.2 g/dL (6.4-8.2) 6.4 g/dL (6.4-8.2) Albumin 2.9 g/dL (3.4-5.0) 2.9 g/dL (3.4-5.0) Albumin/Globulin Ratio 0.9 (1.0-1.7) 0.8 (1.0-1.7) Lipase 173 U/L (73-393) White Blood Count 8.7 x10^3/uL (4.0-11.0) Red Blood Count 4.19 x10^6/uL (3.50-5.40) Hemoglobin 12.7 g/dL (12.0-15.5) Hematocrit 37.1 % (36.0-47.0) Mean Corpuscular Volume 88 fL (79-100) Mean Corpuscular Hemoglobin 30 pg (25-35) Mean Corpuscular Hemoglobin Concent 34 g/dL (31-37) Red Cell Distribution Width 14.3 % (11.5-14.5) Platelet Count 329 x10^3/uL (140-400) Neutrophils (%) (Auto) 67 % (31-73) Lymphocytes (%) (Auto) 23 % (24-48) Monocytes (%) (Auto) 7 % (0-9) Eosinophils (%) (Auto) 3 % (0-3) Basophils (%) (Auto) 1 % (0-3) Neutrophils # (Auto) 5.8 x10^3uL (1.8-7.7) Lymphocytes # (Auto) 2.0 x10^3/uL (1.0-4.8) Monocytes # (Auto) 0.6 x10^3/uL (0.0-1.1) Eosinophils # (Auto) 0.2 x10^3/uL (0.0-0.7) Basophils # (Auto) 0.1 x10^3/uL (0.0-0.2) Assessment/Plan Diverticulitis without perforation or abscess on CT constipation hx, abdominal distention elevated LFTS, now trending down will check abd xrays today continue abx may need to consider repeating CT with IV and oral contrast Problems: MOLLY DELGADO SHIRT IRONER Nov 24, 2016 14:27
--- NOTE | 2016-11-24 14:41 | PDOC ---
PROGRESS NOTES Diagnosis DIAGNOSIS acute diverticulitis Elevated Liver Enzymes improving Elevated Lipase trending down Chronic constipation according to the patient she has not had any bowel movement since 10/22/16 Sepsis on iv zosyn Ciprofloxacin and flagyl were discontinued Weight loss Problem Problems Medical Problems: (1) Diverticulitis Status: Acute Assessment Problems Medical Problems: (1) Diverticulitis Status: Acute PLAN Continue I V fluids Continue I V Zosyn Continue pain management Rectal examination revealed normal sphincter tone and empty vault Labs will be repeated tomorrow Subjective The patient is resting propped up in bed in NAD She is very emotional tearful claiming that she has no bowel movement for more than 5 weeks yet her rectal exam was unremarkable vitals are stable Abdomen is diffusely tender but bowel sound are active Objective Vital Signs Date Time Temp Pulse Resp B/P (MAP) Pulse Ox O2 Delivery O2 Flow Rate FiO2 11/24/16 10:59 98.0 68 18 121/64 (83) Room Air 96.0 11/24/16 05:15 94 Intake and Output 11/24/16 07:00 Intake Total 3059.13 ml Output Total 3925 ml Balance -865.87 ml Intake Oral 1820 ml IV Total 1239.13 ml Output Urine Total 3925 ml # Bowel Movements 1 Review of Relevant I have reviewed the following items truman (where applicable) has been applied. Labs Laboratory Tests Test 11/23/16 06:17 11/24/16 05:46 Sodium Level 144 mmol/L (136-145) 143 mmol/L (136-145) Potassium Level 4.6 mmol/L (3.5-5.1) 4.1 mmol/L (3.5-5.1) Chloride Level 108 mmol/L (98-107) 105 mmol/L (98-107) Carbon Dioxide Level 27 mmol/L (21-32) 28 mmol/L (21-32) Anion Gap 9 (6-14) 10 (6-14) Blood Urea Nitrogen 11 mg/dL (7-20) 9 mg/dL (7-20) Creatinine 1.1 mg/dL (0.6-1.0) 1.1 mg/dL (0.6-1.0) Estimated GFR (Cockcroft-Gault) 49.1 49.1 BUN/Creatinine Ratio 10 (6-20) 8 (6-20) Glucose Level 75 mg/dL (70-99) 84 mg/dL (70-99) Calcium Level 8.1 mg/dL (8.5-10.1) 8.2 mg/dL (8.5-10.1) Magnesium Level 1.9 mg/dL (1.8-2.4) 2.3 mg/dL (1.8-2.4) Total Bilirubin 1.2 mg/dL (0.2-1.0) 0.7 mg/dL (0.2-1.0) Aspartate Amino Transf (AST/SGOT) 340 U/L (15-37) 132 U/L (15-37) Alanine Aminotransferase (ALT/SGPT) 406 U/L (14-59) 98 U/L (14-59) Alkaline Phosphatase 191 U/L (46-116) 170 U/L (46-116) Total Protein 6.2 g/dL (6.4-8.2) 6.4 g/dL (6.4-8.2) Albumin 2.9 g/dL (3.4-5.0) 2.9 g/dL (3.4-5.0) Albumin/Globulin Ratio 0.9 (1.0-1.7) 0.8 (1.0-1.7) Lipase 173 U/L (73-393) White Blood Count 8.7 x10^3/uL (4.0-11.0) Red Blood Count 4.19 x10^6/uL (3.50-5.40) Hemoglobin 12.7 g/dL (12.0-15.5) Hematocrit 37.1 % (36.0-47.0) Mean Corpuscular Volume 88 fL (79-100) Mean Corpuscular Hemoglobin 30 pg (25-35) Mean Corpuscular Hemoglobin Concent 34 g/dL (31-37) Red Cell Distribution Width 14.3 % (11.5-14.5) Platelet Count 329 x10^3/uL (140-400) Neutrophils (%) (Auto) 67 % (31-73) Lymphocytes (%) (Auto) 23 % (24-48) Monocytes (%) (Auto) 7 % (0-9) Eosinophils (%) (Auto) 3 % (0-3) Basophils (%) (Auto) 1 % (0-3) Neutrophils # (Auto) 5.8 x10^3uL (1.8-7.7) Lymphocytes # (Auto) 2.0 x10^3/uL (1.0-4.8) Monocytes # (Auto) 0.6 x10^3/uL (0.0-1.1) Eosinophils # (Auto) 0.2 x10^3/uL (0.0-0.7) Basophils # (Auto) 0.1 x10^3/uL (0.0-0.2) Medications Current Medications Morphine Sulfate (Morphine 4mg Syringe) 4 mg PRN Q15MIN PRN IV/SQ PAIN GREATER THAN 3/10 Last administered on 11/21/16 18:31; Start 11/21/16 at 18:00; Stop at 07:29; Status DC Sodium Chloride 1,000 ml @ 1,000 mls/hr Q1H IV Last administered on 11/21/16 18:10; Start 11/21/16 at 18:10; Stop 11/21/16 at 19:09; Status DC Ondansetron HCl (Zofran) 4 mg 1X ONCE IV Last administered on 11/21/16 18:10 ; Start 11/21/16 at 18:10; Stop 11/21/16 at 18:11; Status DC Ketorolac Tromethamine (Toradol) 30 mg 1X ONCE IV Last administered on 19:10; Start 11/21/16 at 19:10; Stop 11/21/16 at 19:11; Status DC Ciprofloxacin Lactate 200 ml @ 200 mls/hr 1X ONCE IV Last administered on 22:10; Start 11/21/16 at 22:10; Stop 11/21/16 at 23:09; Status DC Metronidazole 100 ml @ 200 mls/hr 1X ONCE IV Last administered on 11/22/16 00 :58; Start 11/21/16 at 22:10; Stop 11/21/16 at 22:39; Status DC Sodium Chloride 1,000 ml @ 1,000 mls/hr 1X ONCE IV Last administered on 22:10; Start 11/21/16 at 22:10; Stop 11/21/16 at 23:09; Status DC Morphine Sulfate (Morphine 2mg Syringe) 2 mg PRN Q2HR PRN IV PAIN Last administered on 11/22/16 12:38; Start 11/21/16 at 22:15; Stop 11/22/16 at 22:14; Status DC Sodium Chloride 1,000 ml @ 150 mls/hr Q6H40M IV Last administered on 11/22/16 00:57; Start 11/21/16 at 22:15; Stop 11/22/16 at 22:14; Status DC Potassium Chloride (Klor-Con) 40 meq 1X ONCE PO Last administered on 11/22/16 01:51; Start 11/22/16 at 01:30; Stop 11/22/16 at 01:31; Status DC Ciprofloxacin Lactate 200 ml @ 200 mls/hr Q12HR IV Last administered on 09:00; Start 11/22/16 at 09:00; Stop 11/22/16 at 13:52; Status DC Metronidazole 100 ml @ 100 mls/hr Q8HRS IV ; Start 11/22/16 at 14:00; Stop at 14:00; Status DC Ketorolac Tromethamine (Toradol) 15 mg PRN Q6HRS PRN IV PAIN Last administered on 11/24/16 12:05; Start 11/22/16 at 07:30; Stop 11/27/16 at 07:29 Potassium Chloride 40 meq/ Lactated Ringer's 1,020 ml @ 100 mls/hr [id number] IV Last administered on 11/24/16 02:18; Start 11/22/16 at 08:00 Ondansetron HCl (Zofran) 4 mg PRN Q6HRS PRN IV NAUSEA/VOMITING Last administered on 11/24/16 09:10; Start 11/22/16 at 13:00 Piperacillin Sod/ Tazobactam Sod (Zosyn Per Pharmacy) 1 each PRN DAILY PRN [facility] SEE COMMENTS; Start 11/22/16 at 14:00 Piperacillin Sod/ Tazobactam Sod 3.375 gm/Sodium Chloride 50 ml @ 100 mls/hr Q6H IV ; Start 11/22/16 at 16:00; Stop 11/22/16 at 16:00; Status DC Piperacillin Sod/ Tazobactam Sod 3.375 gm/Sodium Chloride 50 ml @ 100 mls/hr Q6H IV Last administered on 11/24/16 10:13; Start 11/22/16 at 16:00 Enoxaparin Sodium (Lovenox) 30 mg Q24H SQ Last administered on 11/23/16 14:54; Start 11/22/16 at 15:00 Trazodone HCl (Desyrel) 50 mg QHS PO ; Start 11/23/16 at 21:00; Stop 11/23/16 at 21:00; Status DC Trazodone HCl (Desyrel) 50 mg QHS PO Last administered on 11/23/16 20:22; Start 11/22/16 at 22:45 Pantoprazole Sodium (Protonix Vial) 40 mg DAILYAC IVP Last administered on 07:30; Start 11/24/16 at 07:30 Bisacodyl (Dulcolax Tab) 5 mg QODAY PO Last administered on 11/23/16 08:24; Start 11/23/16 at 09:00 Buspirone HCl (Buspar) 5 mg TIDWMEALS PO Last administered on 11/24/16 12:01; Start 11/23/16 at 08:00 Carbidopa/Levodopa (Sinemet 25/100) 1 tab QID PO Last administered on 11/24/16 08:07; Start 11/23/16 at 09:00 Cyclosporine (Restasis) 1 drop BID OU Last administered on 11/24/16 08:08; Start 11/23/16 at 09:00 Duloxetine HCl (Cymbalta) 60 mg QHS PO Last administered on 11/23/16 20:22; Start 11/23/16 at 21:00 Folic Acid (Folic Acid) 1 mg DAILY PO Last administered on 11/24/16 08:07; Start 11/23/16 at 09:00 Lamotrigine (LaMICtal) 50 mg HS PO Last administered on 11/23/16 20:25; Start 11/23/16 at 21:00 Ropinirole HCl (Requip) 0.5 mg TID PO Last administered on 11/24/16 08:07; Start 11/23/16 at 09:00 Ropinirole HCl (Requip) 1 mg TID PO Last administered on 11/24/16 08:07; Start 11/23/16 at 09:00 Senna/Docusate Sodium (Senna Plus) 2 tab BID PO Last administered on 11/24/16 08:07; Start 11/23/16 at 09:00 Melatonin 4.5 mg HS PO Last administered on 11/23/16 20:25; Start 11/23/16 at 21 :00 Ondansetron HCl (Zofran Odt) 4 mg PRN Q6HRS PRN PO NAUSEA/VOMITING; Start at 08:00 Magnesium Citrate (Citroma) 296 ml 1X ONCE PO Last administered on 11/23/16 16 :21; Start 11/23/16 at 16:00; Stop 11/23/16 at 16:16; Status DC Morphine Sulfate (Morphine 2mg Syringe) 2 mg PRN Q2HR PRN IV PAIN Last administered on 11/23/16 19:39; Start 11/23/16 at 19:30 Active Scripts Active Reported Zofran (Ondansetron Hcl) 4 Mg Tablet 4 Mg PO PRN Q6HRS PRN Trazodone Hcl 50 Mg Tablet 50 Mg PO QHS Sorbitol (Sorbitol Solution) 1 Ml Solution 30 Ml PO PRN DAILY PRN Senna S Tablet (Sennosides/Docusate Sodium) 1 Each Tablet 2 Tab PO BID Restasis (Cyclosporine) 1 Each Droperette 1 Drop OU BID Klor-Con M20 (Potassium Chloride) 20 Meq Tab.er.prt 40 Meq PO DAILY Mometasone Furoate 45 Gm Oint...g. 1 Dina TP DAILY Melatonin 5 Mg Tablet (Melatonin/Pyridoxine) 1 Each Tablet 5 Mg PO QHS Effexor Xr (Venlafaxine Hcl) 75 Mg Cap.er.24h 75 Mg PO DAILY Buspirone Hcl 5 Mg Tablet 5 Mg PO TIDWMEALS Acetaminophen 325 Mg Tablet 650 Mg PO PRN Q6HRS PRN Norvasc (Amlodipine Besylate) 10 Mg Tablet 10 Mg PO DAILY Centrum Silver Tablet (Multivits-Min/Fa/Lycopene/Lut) 1 Each Tablet 1 Tab PO DAILY Probiotic 4X Caplet (B Infantis/B Ani/B Ozzy/B Bifid) 1 Each Tablet.dr 2 Tab PO DAILY Bisacodyl 5 Mg Tablet.dr 5 Mg PO QODAY Requip (Ropinirole Hcl) 1 Mg Tablet 1 Mg PO TID Requip (Ropinirole Hcl) 0.5 Mg Tablet 0.5 Mg PO TID Simvastatin 10 Mg Tablet 10 Mg PO QHS Lamotrigine 100 Mg Tablet 50 Mg PO HS Donepezil Hcl 10 Mg Tablet 10 Mg PO DAILY Sinemet 25-100 Mg Tablet (Carbidopa/Levodopa) 1 Each Tablet 1 Tab PO QID Folic Acid 1 Mg Tablet 1 Mg PO DAILY Cymbalta (Duloxetine Hcl) 60 Mg Capsule.dr 60 Mg PO QHS Vitals/I & O Vital Sign - Last 24 Hours 11/23/16 11/23/16 11/23/16 11/23/16 16:37 19:11 19:39 20:09 Temp 98.1 98.2 Pulse 68 68 Resp 18 20 B/P (MAP) 143/86 (105) 130/74 (92) Pulse Ox 98 95 O2 Delivery Room Air Room Air Room Air Room Air 11/23/16 11/23/16 11/24/16 11/24/16 20:57 22:19 05:15 08:00 Temp 98.2 97.5 Pulse 65 53 Resp 18 16 B/P (MAP) 152/84 (106) 131/74 (93) Pulse Ox 96 94 O2 Delivery Room Air Room Air Room Air Room Air 11/24/16 10:59 Temp 98.0 Pulse 68 Resp 18 B/P (MAP) 121/64 (83) O2 Delivery Room Air O2 Flow Rate 96.0 Intake and Output 11/23/16 11/23/16 11/24/16 15:00 23:00 07:00 Intake Total 760 ml 1719.13 ml 580 ml Output Total 1050 ml 2075 ml 800 ml Balance -290 ml -355.87 ml -220 ml VIJAYA TORERZ MD Nov 24, 2016 14:41
[2016-11-24] MEDS: ENOXAPARIN 30 MG/0.3 ML DISP.SYRIN. SQ SCH (15:06)
--- NOTE | 2016-11-24 15:42 | RAD ---
Indication abdominal pain since last week. Constipation. AP view of the chest was obtained as well as supine and upright films of the abdomen. The chest is compared to an examination 05/02/2016. The heart and pulmonary vessels appear normal. The lungs are clear of acute infiltrates. Significant pleural fluid is not seen. There is no pneumothorax. There is no free air. Clips are seen in the gallbladder fossa. There is moderate dilatation of the cecum with air. It is dilated to approximately 11 cm. Moderate amount of stool is noted in the left colon. No organomegaly or abnormal calculi are seen. IMPRESSION: No acute finding in the chest. Slight dilatation of the cecum and ascending colon. Moderate amount of stool in the left colon
[2016-11-24 16:36] VITALS: BP 109/67
[2016-11-24 19:00] VITALS: BP 136/67
[2016-11-24] MEDS: lamoTRIgine 100 MG TABLET. PO SCH (20:23)
[2016-11-24] MEDS: DULoxetine HCL 60 MG CAPSULE.DR PO SCH (20:24)
[2016-11-24] MEDS: MELATONIN 3 MG TABLET PO SCH (20:24)
[2016-11-24] MEDS: traZODone 50 MG TABLET. PO SCH (20:24)
[2016-11-25] MEDS: POTASSIUM CHLORIDE 40 MEQ in IV RINGERS SOLUTION,LACTATED 1,000 ML IV SCH (00:36)
[2016-11-25] MEDS: PIPERACILLIN/TAZOBACTAM 3.375 GM in IV NORMAL SALINE 50ML 50 ML IV SCH ×2 (03:57→09:56)
[2016-11-25 05:19] VITALS: BP_SYST 124; BP_SYST 166; BP_DIAS 71; BP_DIAS 79
[2016-11-25 06:21] LABS: BASO % 1 % (0-3); EOS # 0.2 x10^3/uL (0.0-0.7); EOS % 4 % (0-3); HEMATOCRIT 36.6 % (36.0-47.0); HEMOGLOBIN 12.4 g/dL (12.0-15.5); LYMPH # 1.8 x10^3/uL (1.0-4.8); LYMPH % 31 % (24-48); MEAN CORPUSCULAR HEMOGLOBIN 30 pg (25-35); MEAN CORPUSCULAR HGB CONC 34 g/dL (31-37); MEAN CORPUSCULAR VOLUME 89 fL (79-100); MONO # 0.4 x10^3/uL (0.0-1.1); MONO % 7 % (0-9); NEUT # 3.3 x10^3uL (1.8-7.7); NEUT % 57 % (31-73); PLATELET COUNT 342 x10^3/uL (140-400); RED BLOOD COUNT 4.12 x10^6/uL (3.50-5.40); RED CELL DISTRIBUTION WIDTH 14.6 % (11.5-14.5); WHITE BLOOD COUNT 5.7 x10^3/uL (4.0-11.0)
[2016-11-25 06:42] LABS: ALBUMIN 3.1 g/dL (3.4-5.0); ALBUMIN/GLOBULIN RATIO 0.9 (1.0-1.7); CALCIUM 8.6 mg/dL (8.5-10.1); CREATININE 1.1 mg/dL (0.6-1.0); GFR 49.1; POTASSIUM 4.2 mmol/L (3.5-5.1); TOTAL BILIRUBIN 0.6 mg/dL (0.2-1.0); TOTAL PROTEIN 6.6 g/dL (6.4-8.2)
[2016-11-25] MEDS: KETOROLAC 15 MG/ML VIAL. IV PRN (07:32)
[2016-11-25] MEDS: PANTOPRAZOLE IV PUSH 40 MG VIAL. IVP SCH (07:39)
[2016-11-25] MEDS: cycloSPORINE 0.05% OPTH 1 DROP DROPERETTE OU SCH (08:41)
[2016-11-25] MEDS: FOLIC ACID 1 MG TABLET PO SCH (08:41)
[2016-11-25] MEDS: busPIRone 5 MG TABLET. PO SCH (08:41)
[2016-11-25] MEDS: rOPINIRole 1 MG TABLET. PO SCH (08:41)
[2016-11-25] MEDS: SENNOSIDES/DOCUSATE 8.6/50MG TABLET. PO SCH (08:41)
[2016-11-25] MEDS: BISACODYL TAB 5 MG TABLET.DR. PO SCH (08:41)
[2016-11-25] MEDS: CARBIDOPA/LEVODOPA 25/100MG TABLET PO SCH (08:41)
[2016-11-25] MEDS: rOPINIRole 0.5 MG TABLET. PO SCH (08:41)
[2016-11-25 09:37] VITALS: BP 128/76
--- NOTE | 2016-11-25 09:44 | NUR ---
RENAL DOSING NOTE: SCR=1.1 CRCL 38 The order for Lovenox 30mg SQ daily has been changed to Lovenox 40mg SQ daily per renal dosing protocol. Pharmacy will continue to monitor this patient and make adjustments as necessary. Signed: 11/25/16 at 0946 by PAVEL VILLAGRAN
--- NOTE | 2016-11-25 11:06 | NUR ---
Discharge Note: ROSALES TREADWELL Discharge instructions and discharge home medications reviewed with [facility] RN and a copy given. All questions have been answered and understanding verbalized. The following instructions and handouts were given: MEDICATIONS, LAB RESULTS, IMAGING RESULTS, ACTIVITY, DIET, HISTORY, AND FOLLOW UP INSTRUCTIONS. Discontinued lines and drains: PERIPHERAL IV LEFT INTACT FOR CONTINUED USE AT [facility]. Patient discharged to [facility] with EMS via [facility]. PATIENT'S SON/DPOA NOTIFIED OF PATIENT'S TRANSFER.
[2016-11-26] MEDS ORDERED: ENOXAPARIN 40 MG/0.4 ML DISP.SYRIN. SQ SCH (09:00)
== END 2016-11-25 10:45 | disposition short-term general hospital (02) | DRG 872 ==
LOC: ER 16:35 → 1 SOUTH 11-22
PROVIDERS: ADMIT Family Medicine; ATTEND Family Medicine
DX: A41.9 Sepsis, unspecified organism (principal); K57.92 Diverticulitis of intestine, part unspecified, without perforation or abscess without bleeding; E78.5 Hyperlipidemia, unspecified; J44.9 Chronic obstructive pulmonary disease, unspecified; K21.9 Gastro-esophageal reflux disease without esophagitis; K76.0 Fatty (change of) liver, not elsewhere classified; F32.9 Major depressive disorder, single episode, unspecified; F41.9 Anxiety disorder, unspecified; R74.0 Nonspecific elevation of levels of transaminase and lactic acid dehydrogenase [LDH]; M79.7 Fibromyalgia; K58.9 Irritable bowel syndrome, unspecified; K90.0 Celiac disease; I10 Essential (primary) hypertension; G20 Parkinson's disease; F03.90 Unspecified dementia, unspecified severity, without behavioral disturbance, psychotic disturbance, mood disturbance, and anxiety; Z88.5 Allergy status to narcotic agent; Z88.8 Allergy status to other drugs, medicaments and biological substances; Z88.6 Allergy status to analgesic agent; Z91.040 Latex allergy status; Z82.41 Family history of sudden cardiac death; Z82.49 Family history of ischemic heart disease and other diseases of the circulatory system; Z86.73 Personal history of transient ischemic attack (TIA), and cerebral infarction without residual deficits; Z87.440 Personal history of urinary (tract) infections; Z90.49 Acquired absence of other specified parts of digestive tract; Z90.710 Acquired absence of both cervix and uterus; R63.4 Abnormal weight loss; Z68.22 Body mass index [BMI] 22.0-22.9, adult
CPT/HCPCS: 36415; 74022; 74176; 80047; 80053; 80074; 81001; 82150; 82607; 83690; 83735; 84443; 85027; 85651; 87641; 93975; 96361; 96365; 96375; C9113; J0744; J1650; J1885; J2270; J2405; J2543; J3490; J7120; 99285-25; J7030